=== PATIENT | male | born 1965 | race Caucasian/White ===

== ENCOUNTER 2022-03-01 15:14 | Outpatient (REF) | payer OTHER, SELFPAY ==
[2022-03-01 15:45] LABS: Appearance Urine TURBID; Color Urine YELLOW; Glucose Urine UA NEG (NEG); Nitrite Urine POS (NEG); UACC Culture Trigger YES; Urine Blood 3+ (NEG); Urine Ketones NEG (NEG); Urine Protein 1+ MG/DL (NEG-TRACE)
[2022-03-01 15:46] LABS: Leukocyte Esterase Urine 3+ (NEG)
[2022-03-01 16:07] LABS: RBC Urine TNTC /HPF (0); WBC Urine TNTC /HPF (0-4)
[2022-03-01 16:08] LABS: Amorphous Sediment Urine 2+ /LPF; Bacteria Urine 2+ /LPF; Mucus Urine TRACE /LPF; WBC Clumps Urine NOTED
== END 2022-03-01 15:15 | disposition home or self-care (01) ==
LOC: HO.LNP 15:14
PROVIDERS: Visit Provider Physician Assistant
DX: R30.0 Dysuria (principal); N39.0 Urinary tract infection, site not specified
CPT/HCPCS: 81001; 81003; 87086

== ENCOUNTER 2023-07-11 14:20 | Outpatient (AMB) | payer OTHER, SELFPAY ==
--- NOTE | 2023-07-11 14:26 | MHC.PC.OV ---
Vital Signs 07/11/23 14:33 BP 102/62 Blood Pressure Location Rt brachial Position Sitting Pulse 90 Pulse Source Pulse Oximeter Pulse Oximetry (%) 99 Oxygen Delivery Method Room Air Intake Visit Reasons: 6 month f/u Med Admin Required: No Esthetics Instructor: Present Accompanied by: Care provider Allergies Sulfa (Sulfonamide Antibiotics) [SULFA (SULFONAMIDE ANTIBIOTICS)] Allergy (Unknown, Verified 07/11/23 14:26) DIFFICULTY BREATHING Tobacco use date assessed: 01/03/23 Dental Screening Dental Screen Date: 07/11/23 Did you have a dental visit in the last 12 months?: Yes Did you have a dental problem in the last 6 months where you did not have access to dental care?: No Was dental information given to patient?: Patient has dentist HPI HPI Comments History of Present Illness Details 57-year-old male patient Dr. [facility]. Past medical history significant for diabetes mellitus, cervical fracture C3,4,5,6 and partial T3,4,5,6 fractures leaving him . Patient wheelchair bound. Patient states October 2021 [facility] admission for sepsis x4 pressure ulcer. then went to [facility] for wound care. Patient states now wound healed 1x 1cm healed skin. Patient states washes the wound with Dakin solution apply ice Silvadene cream. Patient reports his wound has slightly opened states he discuss this with his surgeon Dr. Freeman from [facility] will be coming to his house to further evaluate and treat the wound. Patient also states diazepam for spasms 5 mg q.6 hours p.r.n. Patient also has chronic Aguilar catheter the last 16 years and states he does get recurrent UTIs related to this. Patient states ciprofloxacin works best for treatment this. Patient states previously followed by Dr. Ryan, however he would like a referral to Dr. Chappell [facility] to discuss options for suprapubic tube. Referral previously entered to Dr. Walker office however patient reports he has not yet gone to an appointment. Patient reports he will be calling to reset that up. [facility] Medical History (Updated 01/03/23 @ 15:51 by DARA Agrawal) Osteoporosis Chronic incomplete quadriplegia Cervical vertebral fracture Family History Father Heart disease Social History Patient Tobacco Use Status: Never used Tobacco e-Cigarette/Vaping Use: Never Used service: No Cognitive needs: Yes Hearing needs: No Vision needs: No Questionnaire Thrive Questionnaire Date Thrive assessed: 01/03/23 TREVOR-7 AMB Questionnaire TREVOR-7 Date TREVOR - 7 assessed: 01/03/23 Source: Developed by Drs. Minor Calle, Phyllis Bush, Bill Dolan and colleagues, with an educational renee from [employer]. Physical exam (Primary Care) Vital Signs: Last Vital Signs Pulse 90 07/11/23 14:33 BP 102/62 07/11/23 14:33 Pulse Ox 99 07/11/23 14:33 Oxygen Delivery Method Room Air 07/11/23 14:33 Tobacco/Smoking Status: Tobacco use Status Tobacco use date assessed 01/03/23 07/11/23 14:27 Patient Tobacco Use Status Never used Tobacco 07/11/23 14:27 e-Cigarette/Vaping Use Never Used 07/11/23 14:27 Thrive Assessment: Date of Thrive Assessment Date Thrive assessed 01/03/23 07/11/23 14:27 Assessment and Plan Assessment & Plan (1) UTI (urinary tract infection): Code(s): N39.0 - Urinary tract infection, site not specified Plan: Will send level Enamorado is an as requested by patient for recurrent urinary tract infection as he states this medication works best.. Patient advised to schedule appointment with Dr. Chappell urology to establish care. Referral previously entered. (2) Type 2 diabetes mellitus: Code(s): E11.9 - Type 2 diabetes mellitus without complications Plan: Hemoglobin A1c and fasting glucose previously ordered. Patient advised to please get lab work completed. Patient states not currently on medications for diabetes states he is diet controlled. Patient educated to decrease the amount of carbohydrate intake such as pasta, bread, rice and potatoes are all sugar in addition to the sweet stuff. Remember that fruits are good but they also have sugar. (3) Aguilar catheter in place: Code(s): Z97.8 - Presence of other specified devices Plan: Please establish care with Urology Dr. Chappell, referral previously entered. (4) Wheelchair dependent: Code(s): Z99.3 - Dependence on wheelchair Plan Follow up in 6 months for PE with Dr. Ochoa Medications: New levofloxacin 500 mg PO DAILY 10 tabs 1RF N39.0 - Urinary tract infection, site not specified, Z97.8 - Presence of other specified devices Coding Level of Care Code Est Pt Level 4 (92763) Diagnoses UTI (urinary tract infection) N39.0 Type 2 diabetes mellitus E11.[address] Z97.8 Wheelchair dependent Z99.3
[2023-07-11 14:33] VITALS: BP 102/62; PULSE 90; O2SAT 99
== END 2023-07-11 14:59 | disposition home or self-care (01) ==
PROVIDERS: PCP Nurse Practitioner Family; Visit Provider Nurse Practitioner Family
DX: N39.0 Urinary tract infection, site not specified (principal); E11.9 Type 2 diabetes mellitus without complications; Z97.8 Presence of other specified devices; Z99.3 Dependence on wheelchair
CPT/HCPCS: 99214

== ENCOUNTER 2024-01-14 14:11 | Outpatient (AMB) | payer OTHER, SELFPAY ==
--- NOTE | 2024-01-14 14:11 | MHC.PC.OV ---
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: No Accompanied by: Self / Same As Patient Allergies Sulfa (Sulfonamide Antibiotics) [SULFA (SULFONAMIDE ANTIBIOTICS)] Allergy (Unknown, Verified 01/14/24 14:17) DIFFICULTY BREATHING Tobacco use date assessed: 01/14/24 Dental Screening Dental Screen Date: 01/14/24 Did you have a dental visit in the last 12 months?: Yes Did you have a dental problem in the last 6 months where you did not have access to dental care?: No Was dental information given to patient?: Patient has dentist HPI follow up HPI Details quadraplegia due to cervical fracture; recurrent utis; has catheters [facility] Medical History (Updated 01/15/24 @ 09:51 by Xavier Ochoa MD) Osteoporosis Chronic incomplete quadriplegia Cervical vertebral fracture Family History Father Heart disease Social History Patient Tobacco Use Status: Never used Tobacco e-Cigarette/Vaping Use: Never Used service: No Cognitive needs: Yes Hearing needs: No Vision needs: No Questionnaire PHQ-9 Over the last 2 weeks, how often have you been bothered by any of the following problems? 1. Little interest or pleasure in doing things: not at all 2. Feeling down, depressed, or hopeless: not at all 3. Trouble falling or staying asleep, or sleeping too much: not at all 4. Feeling tired or having little energy: not at all 5. Poor appetite or overeating: not at all 6. Feeling bad about yourself - or that you are a failure or have let yourself or your family down: not at all 7. Trouble concentrating on things, such as reading the newspaper or watching television: not at all 8. Moving or speaking so slowly that other people could have noticed. Or the opposite - being so fidgety or restless that you have been moving around a lot more than usual: not at all 9. Thoughts that you would be better off or of hurting yourself in some way: not at all Total score: 0 Depression Screening Interpretation: Negative Depression Screening Done: Yes 45234 - PHQ-9 Billing: Yes Source: Developed by Drs. Minor Calle, Bill Pastrana and colleagues, with an educational renee from [employer]. Thrive Questionnaire Date Thrive assessed: 01/14/24 I am a: Patient What is your living situation today?: I have a steady place to live Within the past 12 months, did the food you bought not last and you didn't have the money to get more?: Never true Within the past 12 months, did you worry whether your food would run out before you got money to buy more?: Never true Do you have trouble paying for medicines?: No Do you have trouble getting transportation to medical appointments?: No Do you have trouble paying your heating and electricity bill?: No Do you have trouble taking care of your child, family member or friend?: No Do you have trouble with day-to-day activities such as bathing, preparing meals, shopping, managing finances, etc.?: No Are you currently unemployed and looking for a job?: No Are you interested in more education?: No Please select the resources that you would like help with: None Currently or been in a relationship where the following occur: no concerns reported THRIVE Score: 0 AUDIT C Alcohol Use Questionnaire (AUDIT-C) 1. How often do you have a drink containing alcohol?: Never 3. How often do you have six or more drinks on one occasion?: Never Total Score: 0 TREVOR-7 AMB Questionnaire TREVOR-7 Date TREVOR - 7 assessed: 01/14/24 Feeling nervous, anxious, or on edge: 0 = Not at all Not being able to stop or control worryin = Not at all Worrying too much about different things: 0 = Not at all Trouble relaxin = Not at all Being so restless that it is hard to sit still: 0 = Not at all Becoming easily annoyed or irritable: 0 = Not at all Feeling afraid as if something awful might happen: 0 = Not at all Total TREVOR-7 score (0-4 normal; 5-9 mild; 10-14 moderate; 15-21 severe): 0 Source: Developed by Phyllis Adam Eleazar, Bill Dolan and colleagues, with an educational renee from [employer]. TREVOR-7 Assessment Billing TREVOR-7 Assessment Tool: TREVOR-7 Assessment 89973 Review of Systems Const Denies chills, Denies headache(s) and Denies weight loss ENT Denies headache(s) Card Denies chest pain, Denies syncope, Denies irregular heart rhythm and Denies dyspnea Resp Denies chest congestion, Denies cough and Denies dyspnea GI Denies abdominal pain, Denies change in stool character, Denies nausea and Denies vomiting Musc Denies deformity and Denies joint swelling Neuro Denies syncope and Denies headache(s) Physical exam (Primary Care) Vital Signs: Last Vital Signs Pulse 90 01/14/24 14:16 BP 112/58 L 01/14/24 14:16 Pulse Ox 97 01/14/24 14:16 Oxygen Delivery Method Room Air 01/14/24 14:16 Tobacco/Smoking Status: Tobacco use Status Tobacco use date assessed 01/14/24 01/14/24 14:18 Patient Tobacco Use Status Never used Tobacco 01/14/24 14:12 e-Cigarette/Vaping Use Never Used 01/14/24 14:12 PHQ-9: PHQ-9 Score PHQ-9: Total score 0 01/14/24 14:24 Depression Screening Interpretation: Negative Thrive Assessment: Date of Thrive Assessment Date Thrive assessed 01/14/24 01/14/24 14:24 Currently or been in a relationship where the following occur: no concerns reported Const General: cooperative, comfortable, no acute distress and alert Neck Neck: Yes no lymphadenopathy Thyroid: Thyroid normal Resp Effort & Inspection: normal respiratory effort Auscultation: clear to auscultation bilaterally Percussion: percussion normal Cardio Jugular venous distension: no JVD Palpation: normal PMI Rate: regular rate Rhythm: regular rhythm Heart sounds: S1 normal heart sound present and S2 normal heart sound present GI Inspection: Yes normal to inspection Palpation (GI): No hepatosplenomegaly present Skin General skin exam: no rashes or lesions noted Extrem General: Yes no clubbing, cyanosis or edema Assessment and Plan Assessment & Plan (1) Wheelchair dependent: Code(s): Z99.3 - Dependence on wheelchair Plan: same rx (2) Chronic flaccid quadriplegia: Code(s): G82.50 - Quadriplegia, unspecified Plan: stable; do labs Orders: Orders Lipid Panel 01/14/24 Z13.220 - Encounter for screening for lipoid disorders Comprehensive Dickens. Panel Fast 01/14/24 Z13.9 - Encounter for screening, unspecified Thyroid Stimulating Hormone 01/14/24 Z13.29 - Encounter for screening for other suspected endocrine disorder Complete Blood Count Auto Diff 01/14/24 Z13.0 - Encounter for screening for diseases of the blood and blood-forming organs and certain disorders involving the immune mechanism Medications: Refilled [Aguilar catheter 3 way indwelling coude tip 22 FR] As directed 1 ea 0RF Coding Level of Care Code Est Pt Level 3 (41889) Diagnoses Wheelchair dependent Z99.3 Chronic flaccid quadriplegia G82.50 Additional Codes TREVOR-7 Assessment Billing - TREVOR-7 Assessment Tool: TREVOR-7 Assessment 51000 ([id number])
[2024-01-14 14:16] VITALS: BP 112/58; PULSE 90; O2SAT 97
--- OUTSIDE RECORDS SUMMARY | 2024-01-14 14:17 | XMS_ITS | Continuity of Care Document ---
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 Name Role Phone Xavier Ochoa MD Primary Care Physician [place] [facility]s): 06/08[place] - 07/14/21 Wound Care [address] [place] [id number] Attending Physician: Amrik Delarosa MD Admitting Physician: Amrik Delarosa MD Referring Physician: Xavier Ochoa MD Allergies, Adverse Reactions, Alerts Substance Reaction Severity Status sulfa drugs hives Active Medications Cipro 500 mg oral tablet 1 tablet = 500 mg, By Mouth, Every 12 hours, for 10 days, # 20 tablet, 0 Refills, Acute 07/16/21 16:22:00 EST, 07/06/21 16:22:00 EST, [facility] #[id number], Partial fill upon patient request if the prescription is for a schedule II opioi... Start Date: 07/06/21 Stop Date: 07/16/21 Status: Ordered diazepam 5 mg oral tablet 1 tablet = 5 mg, By Mouth, Daily at bedtime, PRN as needed for anxiety, 0 Refills, Maintenance, 01/19/12 11:19:13, Tablet Start Date: 01/19/12 Status: Ordered diphenhydramine 25 mg oral tablet By Mouth, Daily at bedtime, PRN Itch Insomnia, 0 Refills, Tablet Start Date: 01/25/12 Status: Ordered Flagyl 500 mg oral tablet 1 tablet = 500 mg, By Mouth, 3 times a day, for 10 days, # 30 tablet, 0 Refills, Acute 07/16/21 16:22:00 EST, 07/06/21 16:22:00 EST, Tablet, [facility] #[id number], Partial fill upon patient request if the prescription is for a schedule II opioid... Start Date: 07/06/21 Stop Date: 07/16/21 Status: Ordered glyburide 5 mg oral tablet By Mouth, Daily, 0 Refills, Tablet Start Date: 01/25/12 Status: Ordered hydrocortisone topical valerate 0.2% ointment apply to affected area once daily Start Date: 08/11/16 Status: Ordered nystatin-triamcinolone topical 637699 u/gm-0.1% cream 1 application, Topically, 2 times a day, for 14 days, apply to affected skin, # 30 Gm, 0 Refills, Acute 07/20/21 16:21:00 EST, 07/06/21 16:21:00 EST, [facility] #[id number], Partial fill upon patient request if the prescription is for a schedule... Start Date: 07/06/21 Stop Date: 07/20/21 Status: Ordered Silvadene 1% cream 1 application, Topically, Daily, # 400 Gm, 0 Refills, Acute 08/10/21 16:23:00 EST, 07/06/21 16:20:00 EST, Cream, [facility] #[id number], Partial fill upon patient request if the prescription is for a schedule II opioid drug., 1 application Topica... Start Date: 07/06/21 Stop Date: 08/10/21 Status: Ordered Silvadene 1% cream 1 application, Topically, Daily, known tolerance of silvadene despite allergy sulfa, # 400 Gm, 5 Refills, Maintenance, 01/10/18 11:40:29 EDT, Cream, 1 application Topically Daily,Instr:known tolerance of silvadene despite allergy sulfa Start Date: 01/10/18 Status: Ordered SSD 1% cream 1 application, Topically, Daily, # 25 Gm, 0 Refills, Maintenance, 08/11/16 17:18:26, Cream Start Date: 08/11/16 Status: Ordered Problem List Condition Effective Dates Status Health Status Inform ant C4 spinal cord injury(Confirmed) Active Diabetes Mellitus(Confirmed) Active
--- OUTSIDE RECORDS SUMMARY | 2024-01-14 14:20 | XMS_ITS | Continuity of Care Document ---
Author Organization Wound Care Address [address] [place] [id number]- Care Team Providers Care Instructor Business Education Name Role Phone Xavier Ochoa MD Primary Care Physician En[place] [facility] [place] Date(s): 06/09/21 - 07/13/[address]ound [address] [place] [id number] Attending Physician: Amrik Delarosa MD Admitting Physician: Amrik Delarosa MD Referring Physician: Xavier Ochoa MD Allergies, Adverse Reactions, Alerts Substance Reaction Severity Status sulfa drugs hives Active Medications Cipro 500 mg oral tablet 1 tablet = 500 mg, By Mouth, Every 12 hours, for 10 days, # 20 tablet, 0 Refills, Acute 07/16/21 16:22:00 EST, 07/06/21 16:22:00 EST, [facility] #[id number], Partial fill upon patient request if the [...] 07/16/21 16:22:00 EST, 07/06/21 16:22:00 EST, Tablet, [email or web address] #[id number], Partial fill upon patient request if the prescription is for a schedule II opioid... Start Date: 07/06/21 Stop Date: 07/16/21 Status: Ordered glyburide 5 mg oral tablet By Mouth, Daily, 0 Refills, Tablet Start Date: 01/25/12 Status: Ordered hydrocortisone topical valerate 0.2% ointment apply to affected area once daily Start Date: 08/11/16 Status: Ordered nystatin-triamcinolone topical 262079 u/gm-0.1% cream 1 application, Topically, 2 times a day, for 14 days, apply to affected skin, # 30 Gm, 0 Refills, Acute 07/20/21 16:21:00 EST, 07/06/21 16:21:00 EST, [email or web address] #[id number], Partial fill upon patient request if the prescription is for a schedule... Start Date: 07/06/21 Stop Date: 07/20/21 Status: Ordered Silvadene 1% cream 1 application, Topically, Daily, # 400 Gm, 0 Refills, Acute 08/10/21 16:23:00 EST, 07/06/21 16:20:00 EST, Cream, [email or web address] #[id number], Partial fill upon patient request if the [...]
== END 2024-01-14 14:41 | disposition home or self-care (01) ==
LOC: HO.HMGH 14:11
PROVIDERS: PCP Internal Medicine; Visit Provider Internal Medicine
DX: G82.50 Quadriplegia, unspecified (principal); Z99.3 Dependence on wheelchair
CPT/HCPCS: 99213

== ENCOUNTER 2024-04-28 14:19 | Outpatient (AMB) | payer OTHER, SELFPAY ==
--- NOTE | 2024-04-28 14:23 | A.OFFPC_ITS ---
Vital Signs 04/28/24 14:29 BP 116/62 Blood Pressure Location Lt brachial Position Sitting Pulse 85 Pulse Source Pulse Oximeter Pulse Oximetry (%) 95 Oxygen Delivery Method Room Air Intake Visit Reasons: 3 Month F/U Intake Note: Pt is requesting eye ointment. 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 Required: No Accompanied by: Self / Same As Patient Allergies Sulfa (Sulfonamide Antibiotics) [SULFA (SULFONAMIDE ANTIBIOTICS)] Allergy (Unknown, Verified 04/28/24 14:28) DIFFICULTY BREATHING Medication List - Last Reconciled 04/29/24 by Xavier Ochoa MD ascorbate calcium (vitamin C) 500 mg PO DAILY [Bard 30cc ceja cath kit As directed] catheterization tray (Ceja Catheter Tray) As directed ciprofloxacin HCl (Cipro) 250 mg PO BID diazepam 5 mg PO Q6H PRN erythromycin 1 appl ophthalmic (eye) DAILY [Ceja catheter 3 way indwelling coude tip 22 FR As directed] silver sulfadiazine 1% 1 appl topical BID 30 days Tobacco use date assessed: 01/14/24 Dental Screening Dental Screen Date: 01/14/24 HPI 3 Month F/U HPI Details quadraplegia due to cervical fracture; [facility] Medical History (Updated 01/15/24 @ 09:51 by Xavier Ochoa MD) Osteoporosis Chronic incomplete quadriplegia Cervical vertebral fracture Family History Father Heart disease Social History Housing: House Patient Tobacco Use Status: Never used Tobacco Tobacco use type: Cigarette e-Cigarette/Vaping Use: Never Used service: No Cognitive needs: Yes Hearing needs: No Vision needs: No Questionnaire PHQ-9 Over the last 2 weeks, how often have you been bothered by any of the following problems? 1. Little interest or pleasure in doing things: not at all 2. Feeling down, depressed, or hopeless: not at all 3. Trouble falling or staying asleep, or sleeping too much: not at all 4. Feeling tired or having little energy: not at all 5. Poor appetite or overeating: not at all 6. Feeling bad about yourself - or that you are a failure or have let yourself or your family down: not at all 7. Trouble concentrating on things, such as reading the newspaper or watching television: not at all 8. Moving or speaking so slowly that other people could have noticed. Or the opposite - being so fidgety or restless that you have been moving around a lot more than usual: not at all 9. Thoughts that you would be better off or of hurting yourself in some way: not at all Total score: 0 Depression Screening Interpretation: Negative Depression Screening Done: Yes 75595 - PHQ-9 Billing: Yes Source: Developed by Drs. Minor Calle, Phyllis Bush, Bill Dolan and colleagues, with an educational renee from [employer]. Thrive Questionnaire Date Thrive assessed: 01/14/24 Are you currently unemployed and looking for a job?: No AUDIT C Alcohol Use Questionnaire (AUDIT-C) 1. How often do you have a drink containing alcohol?: Never 3. How often do you have six or more drinks on one occasion?: Never Total Score: 0 TREVOR-7 AMB Questionnaire TREVOR-7 Date TREVOR - 7 assessed: 01/14/24 Source: Developed by Drs. Minor Calle, Phyllis Bush, Bill Dolan and colleagues, with an educational renee from [employer]. Review of Systems Const Denies chills, Denies headache(s) and Denies weight loss ENT Denies headache(s) Card Denies chest pain, Denies syncope, Denies irregular heart rhythm and Denies dyspnea Resp Denies chest congestion, Denies cough and Denies dyspnea GI Denies abdominal pain, Denies change in stool character, Denies nausea and Denies vomiting Musc Denies deformity and Denies joint swelling Neuro Denies syncope and Denies headache(s) Physical exam (Primary Care) Vital Signs: Last Vital Signs Pulse 85 04/28/24 14:29 BP 116/62 04/28/24 14:29 Pulse Ox 95 04/28/24 14:29 Oxygen Delivery Method Room Air 04/28/24 14:29 Tobacco/Smoking Status: Tobacco use Status Tobacco use date assessed 01/14/24 04/28/24 14:23 Patient Tobacco Use Status Never used Tobacco 04/28/24 14:23 Tobacco use type Cigarette 04/28/24 14:32 e-Cigarette/Vaping Use Never Used 09/24/24 14:23 PHQ-9: PHQ-9 Score PHQ-9: Total score 0 04/28/24 14:32 Depression Screening Interpretation: Negative Thrive Assessment: Date of Thrive Assessment Date Thrive assessed 01/14/24 04/28/24 14:23 Const General: cooperative, comfortable, no acute distress and alert Neck Neck: Yes no lymphadenopathy Thyroid: Thyroid normal Resp Effort & Inspection: normal respiratory effort Auscultation: clear to auscultation bilaterally Percussion: percussion normal Cardio Jugular venous distension: no JVD Palpation: normal PMI Rate: regular rate Rhythm: regular rhythm Heart sounds: S1 normal heart sound present and S2 normal heart sound present GI Inspection: Yes normal to inspection Palpation (GI): No hepatosplenomegaly present Skin General skin exam: no rashes or lesions noted Extrem General: Yes no clubbing, cyanosis or edema Assessment and Plan Assessment & Plan (1) Chronic flaccid quadriplegia: Code(s): G82.50 - Quadriplegia, unspecified Plan: stable; same rx Medications: New erythromycin 1 appl ophthalmic (eye) DAILY 3.5 grams 3RF Refilled diazepam 5 mg PO Q6H PRN 90 tabs 0RF spasms ciprofloxacin HCl (Cipro) 250 mg PO BID 14 tabs 3RF Coding Level of Care Code Est Pt Level 3 (31963) Diagnoses Chronic flaccid quadriplegia G82.50
[2024-04-28 14:29] VITALS: BP 116/62; PULSE 85; O2SAT 95
== END 2024-04-28 14:48 | disposition home or self-care (01) ==
PROVIDERS: PCP Internal Medicine; Visit Provider Internal Medicine
DX: G82.50 Quadriplegia, unspecified (principal)

== ENCOUNTER → 2024-04-28 14:19 | Outpatient (BNVA) | payer OTHER, SELFPAY | PROVIDERS: PCP Internal Medicine; Visit Provider Internal Medicine | DX: G82.50 Quadriplegia, unspecified (principal); S12.9XXS Fracture of neck, unspecified, sequela | CPT/HCPCS: 96127; 99212 ==

== ENCOUNTER 2024-09-29 11:52 | Outpatient (AMB) | payer OTHER, SELFPAY ==
--- NOTE | 2024-09-29 11:53 | A.OFFPC_ITS ---
Vital Signs 09/29/24 11:54 BMI Reason not done Patient refused/unable BP 100/62 Blood Pressure Location Lt brachial Position Sitting Pulse 73 Pulse Source Pulse Oximeter Pulse Oximetry (%) 97 Oxygen Delivery Method Room Air Intake Visit Reasons: 3 month f/u Merchandise Complaint Adjuster Required: No Accompanied by: Self / Same As Patient Allergies Sulfa (Sulfonamide Antibiotics) [SULFA (SULFONAMIDE ANTIBIOTICS)] Allergy (Unknown, Verified 09/29/24 11:54) DIFFICULTY BREATHING Medication List - Last Reconciled 09/30/24 by Xavier Ochoa MD ascorbate calcium (vitamin C) 500 mg PO DAILY [Bard 30cc ceja cath kit As directed] catheterization tray (Ceja Catheter Tray) As directed ciprofloxacin HCl (Cipro) 250 mg PO BID 10 days diazepam 5 mg PO Q6H PRN erythromycin 1 appl ophthalmic (eye) DAILY [Ceja catheter 3 way indwelling coude tip 22 FR As directed] silver sulfadiazine 1% 1 appl topical BID 30 days Tobacco use date assessed: 09/29/24 Dental Screening Dental Screen Date: 09/29/24 Did you have a dental visit in the last 12 months?: Yes Did you have a dental problem in the last 6 months where you did not have access to dental care?: No Was dental information given to patient?: Patient has dentist HPI 3 month f/u HPI Details quadraplegic following a cervical fracture; DM and frquent UTIs; self manages himself well PFSH Medical History (Updated 01/15/24 @ 09:51 by Xavier Ochoa MD) Osteoporosis Chronic incomplete quadriplegia Cervical vertebral fracture Family History Father Heart disease Social History Housing: House Patient Tobacco Use Status: Never used Tobacco Tobacco use type: Cigarette e-Cigarette/Vaping Use: Never Used service: No Cognitive needs: Yes Hearing needs: No Vision needs: No Questionnaire PHQ-9 Over the last 2 weeks, how often have you been bothered by any of the following problems? 1. Little interest or pleasure in doing things: not at all 2. Feeling down, depressed, or hopeless: not at all 3. Trouble falling or staying asleep, or sleeping too much: not at all 4. Feeling tired or having little energy: not at all 5. Poor appetite or overeating: not at all 6. Feeling bad about yourself - or that you are a failure or have let yourself or your family down: not at all 7. Trouble concentrating on things, such as reading the newspaper or watching television: not at all 8. Moving or speaking so slowly that other people could have noticed. Or the opposite - being so fidgety or restless that you have been moving around a lot more than usual: not at all 9. Thoughts that you would be better off or of hurting yourself in some way: not at all Total score: 0 Depression Screening Interpretation: Negative Depression Screening Done: Yes 77055 - PHQ-9 Billing: Yes Source: Developed by Drs. Minor Calle, Phyllis Bush, Bill Dolan and colleagues, with an educational renee from [employer]. Thrive Questionnaire Date Thrive assessed: 09/29/24 Are you currently unemployed and looking for a job?: No AUDIT C Alcohol Use Questionnaire (AUDIT-C) 1. How often do you have a drink containing alcohol?: Never 3. How often do you have six or more drinks on one occasion?: Never Total Score: 0 TREVOR-7 AMB Questionnaire TREVOR-7 Date TREVOR - 7 assessed: 09/29/24 Feeling nervous, anxious, or on edge: 0 = Not at all Not being able to stop or control worryin = Not at all Worrying too much about different things: 0 = Not at all Trouble relaxin = Not at all Being so restless that it is hard to sit still: 0 = Not at all Becoming easily annoyed or irritable: 0 = Not at all Feeling afraid as if something awful might happen: 0 = Not at all Total TREVOR-7 score (0-4 normal; 5-9 mild; 10-14 moderate; 15-21 severe): 0 Source: Developed by Drs. Minor Calle, Phyllis Bush, Bill Dolan and colleagues, with an educational renee from [employer]. Review of Systems Const Denies chills, Denies headache(s) and Denies weight loss ENT Denies headache(s) Card Denies chest pain, Denies syncope, Denies irregular heart rhythm and Denies dyspnea Resp Denies chest congestion, Denies cough and Denies dyspnea GI Denies abdominal pain, Denies change in stool character, Denies nausea and Denies vomiting Musc Denies deformity and Denies joint swelling Neuro Denies syncope and Denies headache(s) Physical exam (Primary Care) Vital Signs: Last Vital Signs Pulse 73 09/29/24 11:54 BP 100/62 09/29/24 11:54 Pulse Ox 97 09/29/24 11:54 Oxygen Delivery Method Room Air 09/29/24 11:54 Tobacco/Smoking Status: Tobacco use Status Tobacco use date assessed 09/29/24 09/29/24 11:59 Patient Tobacco Use Status Never used Tobacco 09/29/24 11:59 Tobacco use type Cigarette 09/29/24 11:59 e-Cigarette/Vaping Use Never Used 09/29/24 11:59 PHQ-9: PHQ-9 Score PHQ-9: Total score 0 09/29/24 11:59 Depression Screening Interpretation: Negative Thrive Assessment: Date of Thrive Assessment Date Thrive assessed 09/29/24 09/29/24 11:59 Const General: cooperative, comfortable, no acute distress and alert Neck Neck: Yes no lymphadenopathy Thyroid: Thyroid normal Resp Effort & Inspection: normal respiratory effort Auscultation: clear to auscultation bilaterally Percussion: percussion normal Cardio Jugular venous distension: no JVD Palpation: normal PMI Rate: regular rate Rhythm: regular rhythm Heart sounds: S1 normal heart sound present and S2 normal heart sound present GI Inspection: Yes normal to inspection Palpation (GI): No hepatosplenomegaly present Skin General skin exam: no rashes or lesions noted Extrem General: Yes no clubbing, cyanosis or edema Coding Level of Care Code Est Pt Level 3 (51848) Diagnoses 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
[2024-09-29 11:54] VITALS: BP 100/62; PULSE 73; O2SAT 97
--- OUTSIDE RECORDS SUMMARY | 2024-09-29 14:31 | XMS_ITS | Clinical Summary ---
Author Organization [facility] Address [address] [place] [address] Care Team Providers Care Rollway Worker Name Role Phone Xavier Ochoa MD Primary Care Provider [phone] Allergies Active Allergy Reactions Criticality Noted Date Comments Sulfa Antibiotics Unknown/Patient and Family Unable to Define Medium 12/20/2021 Medications Medication Sig Dispensed Refills Start Date End Date Status Amino Acids (AMINO ACID PROTEIN PO) Take 27.5 g by mouth 2 (two) times a day. Active melatonin 3 MG Tab tablet Take 9 mg by mouth nightly. Active senna-docusate (SENNA-S) 8.6-50 MG Take 1 tablet by mouth 2 (two) times a day. Active magnesium oxide 400 (240 Mg) MG Tab tablet Take 400 mg by mouth 2 (two) times a day. Take 2 hours apart from other medications; take with food Active Multiple Vitamins-Minerals (multivitamin with minerals) tablet Take 1 tablet by mouth daily. Active ascorbic acid (VITAMIN C) 500 MG tablet Take 500 mg by mouth daily. Active enoxaparin (LOVENOX) 40 MG/0.4ML injection Inject 40 mg under the skin daily. Active triamcinolone (KENALOG) 0.1 % cream Apply 1 each topically 2 (two) times a day. Active sodium hypochlorite (DAKINS 1/4 STRENGTH) 0.125 % Solution external solution Apply topically 3 (three) times a day. On every shift to buttocks/ischial wound Activ e acetaminophen (TYLENOL) 325 MG tablet Take 650 mg by mouth every 4 (four) hours as needed for mild pain. Active aluminum-magnesium hydroxide-simethic one (MYLANTA) suspension Take 30 mL by mouth 4 times daily (every 6 hours) as needed for indigestion or heartburn. Active magnesium hydroxide (MILK OF MAGNESIA) 400 mg/5 mL suspension Take 30 mL by mouth daily as needed for constipation. Active polyethylene glycol (miraLAx) 17 g packet Take 17 g by mouth 2 times daily (every 12 hours) as needed for constipation. Active docusate sodium (COLACE) 100 MG capsule Take 100 mg by mouth daily as needed for constipation. Active Dextrose, Diabetic Use, (GLUCOSE PO) Take 31 g by mouth daily as needed (low blood sugar). Active simethicone (MYLICON) 80 MG chewable tablet Chew 160 mg 4 times daily (every 6 hours) as needed for flatulence or gastrointestinal distress. Active diazepam (VALIUM) 5 MG tablet Take 5 mg by mouth daily as needed for anxiety. Active diphenhydrAMINE (BENADRYL) 25 mg capsule Take 25 mg by mouth 4 times daily (every 6 hours) as needed for itching or allergies. Active diphenhydrAMINE (BENADRYL) 25 mg capsule Take 50 mg by mouth nightly as needed for itching or allergies. Active glucagon (GLUCAGEN) 1 mg injection Inject 1 mg into the shoulder, thigh, or buttocks once as needed for low blood sugar. Active hydrocortisone 1 % cream Apply 1 each topically 2 (two) times a day as needed for rash. Active Active Problems Problem Noted Date Diagnosed Date Quadriplegia 12/20/2021 Pressure injury of buttock, stage 4 12/20/2021 Urinary retention 12/20/2021 Decubitus ulcer 12/20/2021 Chronic anemia 12/20/2021 Diabetes mellitus 12/20/2021 Family History Medical History Relation Name Comments Heart disease Father Relation Name Status Comments Father Social History Tobacco Use Types Packs/Day Years Used Date Smoking Tobacco: Former Smokeless Tobacco: Never Alcohol Use Standard Drinks/Week Comments Not Currently 0 (1 standard drink = 0.6 oz pur e alcohol) Sex and Gender Information Value Date Recorded Sex Assigned at Not on file Gender Identity Not on file Sexual Orientation Not on file Last Filed Vital Signs Vital Sign Reading Time Taken Comments Blood Pressure 124/101 12/20/2021 8:00 PM EDT Pulse 93 12/20/2021 8:00 PM EDT Temperature 36.1 ??C (96.9 ??F) 12/20/2021 6:10 PM ED T Respiratory Rate 14 12/20/2021 8:00 PM EDT Oxygen Saturation 97% 12/20/2021 8:00 PM EDT Inhaled Oxygen Concentration - - Weight - - Height - - Body Mass Index - - Plan of Treatment Health Maintenance Due Date Last Done Comments Hepatitis C Virus Screening 1963 Pneumococcal Vaccine: Pediat jose rafael (0-5 Years) and At-Risk Patients (6 to 49 Years) (1 of 2 - PCV) 1969 Foot Exam 1973 Lipid Panel 1973 Ophthalmology Exam 1973 HIV Screening 1976 Microalbumin/Creatinine Rati o Urine 1981 DTaP/Tdap/Td Vaccines (1 - Tdap) 1982 Pneumococcal Vaccines 50+ (1 of 2 - PCV) 1982 Colonoscopy 2008 Zoster (Shingles) Vaccine (1 of 2) 2013 Diabetic Self-Management Tra ining (DSMT) 12/20/2021 Hemoglobin A1C 01/07/2022 10/07/2021 Creatinine with GFR 12/20/2022 12/20/2021 RSV Vaccine 60 years and old er and Patients (1 - Risk 60-74 years 1-dose series) 2023 Influenza Vaccine 03/05/2024 COVID-19 Vaccine (1 - 2023-2 5 season) 2024 Medical Nutrition Therapy (MNT) 08/05/2024 Hepatitis B Vaccines Aged Out No long er eligible based on patient's age to complete this topic Procedures Procedure Name Priority Date/Time Associated Diagnosis Comments COMPREHENSIVE METABOLIC PANEL STAT 12/20/2021 2:02 PM EDT from Last 3 Months or Most Recently Relevant to Health Maintenance Results * (ABNORMAL) Comprehensive Metabolic Panel (12/20/2021 2:02 PM EDT) Glucose 163(H) 65 - 99 mg/dL 12/20/2021 3:09 PM EDT [facility] Blood Urea Nitrogen (BUN) 34(H) 8 - 21 mg/dL 12/20/2021 3:09 PM EDT [facility] Creatinine 0.3(L) 0.5 - 1.3 mg/dL 12/20/2021 3:09 PM [facility] eGFR >60 >59 12/20/2021 3:09 PM [facility] Comment:MDRD in mL/min/1.73 sq meters. Sodium 136 136 - 145 mmol/L 12/20/2021 3:09 PM [facility] Potassium 3.7 3.4 - 5.3 mmol/L 12/20/2021 3:09 PM [facility] Chloride 98 98 - 107 mmol/L 12/20/2021 3:09 PM [facility] CO2 26 22 - 33 mmol/L 12/20/2021 3:09 PM [facility] Calcium 10.4 8.7 - 10.5 mg/dL 12/20/2021 3:09 PM [facility] Alkaline Phosphatase 98 45 - 128 U/L 12/20/2021 3:09 PM [facility] Aspartate Aminotrans (AST) 14 10 - 55 U/L 12/20/2021 3:09 PM [facility] Alanine Aminotrans (ALT) 12 10 - 55 U/L 12/20/2021 3:09 PM [facility] Bilirubin, Total <0.2(L) 0.2 - 1.0 mg/dL 12/20/2021 3:09 PM [facility] Protein, Total 7.7 6.3 - 8.3 g/dL 12/20/2021 3:09 PM [facility] Albumin 3.6 3.5 - 5.0 g/dL 12/20/2021 3:09 PM [facility] BUN/Creatinine Ratio 113(H) 10.0 - 25.0 Ratio 12/20/2021 3:09 PM [facility] Globulin 4.1(H) 1.5 - 3.9 g/dL 12/20/2021 3:09 PM [facility] Albumin/Globulin Ratio 0.9(L) 1.0 - 3.0 Ratio 12/20/2021 3:09 PM [facility] Anion Gap 12 7 - 17 12/20/2021 3:09 PM [facility] Blood specimen (specimen) (Plasma/Serum) 12/20/2021 2:02 PM EDT 12/20/2021 2:45 PM EDT Ida Mcgill MD [facility] [address] [place] [address] from Last 3 Months or Most Recently Relevant to Health Maintenance Advance Directives * Full Code (Latest Code Status on File) Date Activated Date Inactivated Comments 12/20/2021 2:27 PM Care Teams Rollway Worker Relationship Specialty Start Date End Date Xavier Ochoa MD [address] [place] [address] PCP - General 12/20/21
--- OUTSIDE RECORDS SUMMARY | 2024-09-29 14:31 | XMS_ITS | Clinical Summary ---
Author Organization [facility] Address [address] [place] [address] Care Team Providers Care Data Security Analyst Name Role Phone Unavailable Primary Care Provider Unavailabl e Medications No known medications Active Problems Problem Noted Date Diagnosed Date Pressure injury of left ischium, unstageable Social History Tobacco Use Types Packs/Day Years Used Date Smoking Tobacco: Never Assessed Sex and Gender Information Value Date Recorded Sex Assigned at Not on file Legal Sex Male 2:58 PM EDT Gender Identity Not on file Sexual Orientation Not on file Last Filed Vital Signs Vital Sign Reading Time Taken Comments Blood Pressure 80/55 10/24/2023 3:16 PM EDT Pulse 76 10/24/2023 3:16 PM EDT Temperature 36.9 ??C (98.5 ??F) 10/24/2023 3:16 PM ED T Respiratory Rate 18 10/24/2023 3:16 PM EDT Oxygen Saturation 96% 10/24/2023 3:16 PM EDT Inhaled Oxygen Concentration - - Weight - - Height - - Body Mass Index - - Plan of Treatment Health Maintenance Due Date Last Done Comments Pneumococcal Vaccine (2 - 49 years) (1 of 2 - PCV) 1969 Pneumococcal Vaccine (50+ ye ars) (1 of 2 - PCV) 1969 HIV screening 1976 Hepatitis C screening 1981 Tetanus adult (Td q 10,TDAP once) 1983 Lipid disorder screening 2003 Colon cancer screening, Colonoscopy 2008 Diabetes screening 2008 Shingles vaccine (Shingrix) (1 of 2 - Shingrix (RZV) 2 Dose Standard Series) 2013 RSV Discussion (1 - Risk 60- 74 years 1-dose series) 2023 Influenza vaccine 03/05/2024 Covid-19 vaccine series (2023-25 season) 2024 Meningococcal Vaccine Aged Out No lizbeth shalom eligible based on patient's age to complete this topic Insurance WORKERS COMP GENERIC WORKERS COMP GENERIC
--- OUTSIDE RECORDS SUMMARY | 2024-09-29 14:31 | XMS_ITS | Referral Summary ---
Author Organization [facility] Address [address] [place] [address] Care Team Providers Care Glass Bender Name Role Phone Xavier Ochoa Primary Care Provider [phone] Allergies Active Allergy Reactions Criticality Noted Date Comments Sulfa (Sulfonamide Antibiotics) Hives 08/06 Medications diazePAM (VALIUM) 5 mg tablet SMARTSI Tablet(s) By Mouth Every 6 Hours PRN Active levoFLOXacin (LEVAQUIN) 500 mg tablet SMARTSI Tablet(s) By Mouth Daily 07/12/2023 Active Active Problems Problem Noted Date Diagnosed Date Decubitus ulcer of ischial area, left, stage IV 09/03/2023 Social History Tobacco Use Types Packs/Day Years Used Date Smoking Tobacco: Never Assessed Sex and Gender Information Value Date Recorded Sex Assigned at Not on file Legal Sex Male 9:00 AM EDT Gender Identity Not on file Sexual Orientation Not on file Plan of Treatment Not on file Insurance [employer] COMPENSATION Care Teams Glass Bender Relationship Specialty Start Date End Date Xavier Ochoa [address] [place] [address] [place] [address] PCP - General Internal Medicine 08/09/23
--- OUTSIDE RECORDS SUMMARY | 2024-09-29 14:31 | XMS_ITS | Clinical Summary ---
Author Organization [facility] Address [address] [place] [address] Care Team Providers Care Medical Device Sales Name Role Phone Xavier Ochoa Primary Care Provider [phone] Allergies Active Allergy Reactions Criticality Noted Date [...] Orientation Not on file Plan of Treatment Health Maintenance Due Date Last Done Comments Cologuard 1963 Colon Cancer Screening 1963 Colonoscopy 1963 FOBT / Fit Test 1963 HIV Screening 1963 Hepatitis C Screening 1963 Sigmoidoscopy 1963 DTaP,Tdap,and Td Vaccines (1 - Tdap) 1985 Pneumococcal Vaccine: 50+ Ye ars (1 of 1 - PCV) 2013 Zoster Vaccines (1 of 2) 2013 COVID-19 Vaccine (2 - 2023-2 5 season) 2024 11/11/2020 Influenza Vaccine (#1) 2024 06/19/2017 Alcohol/Substance Use Screening 08/05/2024 Depression Screening and Follow-Up 08/05/2024 Social Drivers of Health Danielle ual Screening 08/05/2024 RSV Vaccine (60+ years old a nd patients) (1 - 1-dose 75+ series) 2038 Hepatitis B Vaccines Aged Out No long er eligible based on patient's age to complete this topic Insurance [employer] COMP[employer] Care Teams Medical Device Sales Relationship Specialty Start Date End Date Xavier Ochoa [address] [place] [address] [place] [address] PCP - General Internal Medicine 08/09/23
--- OUTSIDE RECORDS SUMMARY | 2024-09-29 14:31 | XMS_ITS | Clinical Summary ---
Author Organization [facility] Address [address] [place] [id number] Care Team Providers Care Vibration Technician Name Role Phone Unavailable Primary Care Provider Unavailabl e Social History Tobacco Use Types Packs/Day Years Used Date Smoking Tobacco: Never Assessed Sex and Gender Information Value Date Recorded Sex Assigned at Not on file Legal Sex Male 8:59 AM EDT Gender Identity Not on file Sexual Orientation Not on file Plan of Treatment Health Maintenance Due Date Last Done Comments Pneumococcal Vaccine: Pediat rics (0 to 5 Years) and At-Risk Patients (6 to 64 Years) (1 of 2 - PCV) 1969 Colorectal Cancer Screening: Annual FOBT 2012 Colorectal Cancer Screening: Colonoscopy 2012 Colorectal Cancer Screening: Sigmoidoscopy 2012 Diabetes: Hemoglobin A1C 10/20/2021 Diabetes: Ophthalmology Exam 10/20/2021 Diabetes: Pedal Pulse Checked 10/20/2021 Diabetes: Sensory Foot Exam 10/20/2021 Diabetes: Visual Foot Exam 10/20/2021 Influenza Vaccine (#1) 2024 Hepatitis B Vaccine Aged Out No longe r eligible based on patient's age to complete this topic Insurance GENERIC WORKER'S COMP
== END 2024-09-29 12:22 | disposition home or self-care (01) ==
PROVIDERS: PCP Internal Medicine; Visit Provider Internal Medicine
DX: G82.50 Quadriplegia, unspecified (principal); E11.9 Type 2 diabetes mellitus without complications

== ENCOUNTER → 2024-09-29 11:52 | Outpatient (BNVA) | payer OTHER, SELFPAY | PROVIDERS: PCP Internal Medicine; Visit Provider Internal Medicine | DX: G82.50 Quadriplegia, unspecified (principal); E11.9 Type 2 diabetes mellitus without complications; Z87.440 Personal history of urinary (tract) infections | CPT/HCPCS: 96127; 99212 ==

== ENCOUNTER 2025-03-30 12:30 | Outpatient (AMB) | payer OTHER, SELFPAY ==
--- NOTE | 2025-03-30 12:30 | MHC.PC.OV ---
Vital Signs 03/30/25 12:32 BMI Reason not done Patient refused/unable BP 124/66 Blood Pressure Location Rt brachial Position Sitting Pulse 65 Pulse Source Pulse Oximeter Pulse Oximetry (%) 97 Oxygen Delivery Method Room Air Intake Visit Reasons: transfer from [facility] Allergies Sulfa (Sulfonamide Antibiotics) (SULFA (SULFONAMIDE ANTIBIOTICS)) Allergy (Unknown, Verified 03/30/25 12:38) DIFFICULTY BREATHING Medication List - Last Reconciled 03/30/25 by Fariba Canales MD ascorbate calcium (vitamin C) 500 mg PO DAILY [Bard 30cc ceja cath kit As directed] catheterization tray (Ceja Catheter Tray) As directed ciprofloxacin HCl (Cipro) 250 mg PO BID 10 days diazepam 5 mg PO Q6H PRN [Ceja catheter 3 way indwelling coude tip 22 FR As directed] silver sulfadiazine 1% 1 appl topical BID 30 days Tobacco use date assessed: 03/30/25 Dental Screening Dental Screen Date: 03/30/25 Did you have a dental visit in the last 12 months?: Yes Did you have a dental problem in the last 6 months where you did not have access to dental care?: No Was dental information given to patient?: Patient has dentist [facility] Medical History (Updated 03/30/25 @ 13:00 by Fariba Canales MD) Osteoporosis Chronic incomplete quadriplegia Cervical vertebral fracture Family History Father Heart disease Social History Housing: House Patient Tobacco Use Status: Never used Tobacco Tobacco use type: Cigarette e-Cigarette/Vaping Use: Never Used service: No Cognitive needs: Yes Hearing needs: No Vision needs: No Questionnaire PHQ-9 Over the last 2 weeks, how often have you been bothered by any of the following problems? 1. Little interest or pleasure in doing things: not at all 2. Feeling down, depressed, or hopeless: not at all 3. Trouble falling or staying asleep, or sleeping too much: not at all 4. Feeling tired or having little energy: not at all 5. Poor appetite or overeating: not at all 6. Feeling bad about yourself - or that you are a failure or have let yourself or your family down: not at all 7. Trouble concentrating on things, such as reading the newspaper or watching television: not at all 8. Moving or speaking so slowly that other people could have noticed. Or the opposite - being so fidgety or restless that you have been moving around a lot more than usual: not at all 9. Thoughts that you would be better off or of hurting yourself in some way: not at all Total score: 0 Depression Screening Interpretation: Negative Depression Screening Done: Yes Source: Developed by Drs. Minor Calle, Phyllis Bush, Bill Dolan and colleagues, with an educational renee from [employer]. Thrive Questionnaire Date Thrive assessed: 09/29/24 I am a: Patient What is your living situation today?: I have a steady place to live Within the past 12 months, did the food you bought not last and you didn't have the money to get more?: Never true Within the past 12 months, did you worry whether your food would run out before you got money to buy more?: Never true Do you have trouble paying for medicines?: No Do you have trouble getting transportation to medical appointments?: No Do you have trouble paying your heating and electricity bill?: No Do you have trouble taking care of your child, family member or friend?: No Do you have trouble with day-to-day activities such as bathing, preparing meals, shopping, managing finances, etc.?: No Are you currently unemployed and looking for a job?: No Are you interested in more education?: No Please select the resources that you would like help with: None THRIVE Score: 0 AUDIT C Alcohol Use Questionnaire (AUDIT-C) 1. How often do you have a drink containing alcohol?: Never 3. How often do you have six or more drinks on one occasion?: Never Total Score: 0 TREVOR-7 AMB Questionnaire TREVOR-7 Date TREVOR - 7 assessed: 09/29/24 Feeling nervous, anxious, or on edge: 0 = Not at all Not being able to stop or control worryin = Not at all Worrying too much about different things: 0 = Not at all Trouble relaxin = Not at all Being so restless that it is hard to sit still: 0 = Not at all Becoming easily annoyed or irritable: 0 = Not at all Feeling afraid as if something awful might happen: 0 = Not at all Total TREVOR-7 score (0-4 normal; 5-9 mild; 10-14 moderate; 15-21 severe): 0 Source: Developed by Drs. Minor Calle, Phyllis Bush, Bill Dolan and colleagues, with an educational renee from [employer]. Physical exam (Primary Care) Vital Signs: Last Vital Signs Pulse 65 03/30/25 12:32 BP 124/66 03/30/25 12:32 Pulse Ox 97 03/30/25 12:32 Oxygen Delivery Method Room Air 03/30/25 12:32 Tobacco/Smoking Status: Tobacco use Status Tobacco use date assessed 03/30/25 03/30/25 12:32 Patient Tobacco Use Status Never used Tobacco 03/30/25 12:32 Tobacco use type Cigarette 03/30/25 12:32 e-Cigarette/Vaping Use Never Used 03/30/25 12:32 PHQ-9: PHQ-9 Score PHQ-9: Total score 0 03/30/25 12:32 Depression Screening Interpretation: Negative Thrive Assessment: Date of Thrive Assessment Date Thrive assessed 09/29/24 03/30/25 12:32 HENMT Head: Yes normal to inspection and Yes normocephalic Eyes General: appearance normal, both eyes and all related structures Neck Neck: Yes normal visual inspection Chest Chest palpation & inspection: normal inspection of the chest Resp Effort & Inspection: normal respiratory effort Cardio Other: Regular rate and rhythm GI Other: Soft nontender Inspection: Yes normal to inspection Back/Spine/Pelvis Other: Patient sits on wheelchair Skin General skin exam: no rashes or lesions noted Neuro Other: Moves arms but has finger contractures 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 5 lower extremity 1/5 +1 swelling Coding Level of Care Code Est Pt Level 4 (01836) Complex EM visit Add On G2211 Diagnoses Type 2 diabetes mellitus E11.9 Chronic flaccid quadriplegia G82.50 Wheelchair dependent Z99.3 Assessment & Plan Assessment & Plan (1) Type 2 diabetes mellitus: Code(s): E11.9 - Type 2 diabetes mellitus without complications Category: Medical (2) Chronic flaccid quadriplegia: Code(s): G82.50 - Quadriplegia, unspecified Category: Medical (3) Wheelchair dependent: Code(s): Z99.3 - Dependence on wheelchair Category: Medical Plan History of Present Illness The patient is a 59-year-old male presenting with the management of chronic conditions including diabetes mellitus and chronic flaccid quadriplegia. 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 He is wheelchair-dependent and experiences finger contractures, limiting his ability to perform daily activities. The patient also has diabetes mellitus, which he manages through diet, although he does not regularly monitor his blood glucose levels. He reports dizziness, particularly on follow-up days, which may be related to his diabetes management. The patient had a stage 4 pressure ulcer on his left shoulder, which has healed after treatment with Silvadene and rehabilitation at [facility]. He continues to use Silvadene as a precautionary measure to prevent further skin breakdown. The patient has an indwelling urinary catheter, which he changes every month to five weeks. He reports that his urine is not consistently clear, which may indicate a need for further evaluation. Health Maintenance - Blood work including hemoglobin A1c and cholesterol screening was discussed. - Referral to an eye doctor for vision assessment was considered. Social History - The patient is wheelchair-dependent due to chronic flaccid quadriplegia. - He manages his diabetes through dietary measures but does not regularly monitor blood glucose levels. - The patient has a [place] girlfriend who has influenced his dietary habits. Review of Systems - Neurological: Reports dizziness, particularly on follow-up days. - Musculoskeletal: Reports finger contractures. - Genitourinary: Reports urine not consistently clear. Physical Exam General: Cooperative, healthy appearing, comfortable, no acute distress and well developed. Patient sits on a wheelchair. Orientation: Patient oriented x3 Limitations: Chronic flaccid quadriplegia, wheelchair dependent Head: Normal to inspection Ears: Hearing grossly normal bilaterally Nose: Normal external nose present Face and sinus: Normal facial exam Eyes: Appearance normal, both eyes and all related structures Neck: Normal visual inspection and Yes full ROM Respiratory: Normal respiratory effort and able to speak in complete sentences. Clear to auscultation bilaterally Cardiovascular: Regular rate and rhythm. Normal S1 and S2 GI: Normal to inspection. Soft to palpation and nontender Skin: No rashes or lesions noted Neuro: Patient oriented x3. 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 Extremities: Upper extremity strength is 5/5. Lower extremity strength is 1/5. +1 swelling noted. Results Plan Patient was informed and verbally consented to the use of an ambient scribe for clinic note documentation during this visit. 1. Chronic Flaccid Quadriplegia The patient continues to manage chronic flaccid quadriplegia, which is a result of a cervical fracture sustained in 1986. He is wheelchair-dependent and experiences finger contractures, which limit his daily activities. 2. Diabetes Mellitus The patient manages diabetes mellitus primarily through dietary measures but does not regularly monitor his blood glucose levels. Blood work including hemoglobin A1c is planned to assess current control. 3. Stage 4 Pressure Ulcer The patient had a stage 4 pressure ulcer on his left shoulder, which has healed following treatment with Silvadene and rehabilitation at [facility]. He continues to use Silvadene as a precautionary measure to prevent further skin breakdown. 4. Indwelling Urinary Catheter The patient has an indwelling urinary catheter, which he changes every month to five weeks. He reports that his urine is not consistently clear, indicating a need for further evaluation. Discussion Notes During the visit, we discussed the management of the patient's chronic conditions, including diabetes mellitus and chronic flexed quadriplegia. We reviewed the importance of regular blood glucose monitoring and planned for blood work to include hemoglobin A1c and cholesterol screening. The patient was advised to continue using Silvadene for skin protection and to monitor the clarity of urine due to the indwelling catheter. Patient Instructions - Continue using Silvadene as directed to prevent skin breakdown. - Monitor blood glucose levels regularly and follow dietary recommendations for diabetes management. - Schedule and complete blood work including hemoglobin A1c and cholesterol screening. - Observe urine clarity and report any changes to your healthcare provider. - Follow up in three months for reassessment of chronic conditions. Orders: Orders AMB Hemoglobin A1c Today E11.9 - Type 2 diabetes mellitus without complications Complete Blood Count Auto Diff Today E11.9 - Type 2 diabetes mellitus without complications Comprehensive Met. Panel Today E11.9 - Type 2 diabetes mellitus without complications Free T4 (Free Thyroxine) Today E11.9 - Type 2 diabetes mellitus without complications Thyroid Stimulating Hormone Today E11.9 - Type 2 diabetes mellitus without complications Ferritin Today E11.9 - Type 2 diabetes mellitus without complications Hemoglobin A1c Today E11.9 - Type 2 diabetes mellitus without complications Uric Acid Today E11.9 - Type 2 diabetes mellitus without complications Lipid Panel Today E11.9 - Type 2 diabetes mellitus without complications, E78.00 - Pure hypercholesterolemia, unspecified Prostate Specific Antigen Scr Today E11.9 - Type 2 diabetes mellitus without complications Vitamin B12 and Folate Today E11.9 - Type 2 diabetes mellitus without complications Reticulocyte Count Today E11.9 - Type 2 diabetes mellitus without complications IRON PROFILE Today E11.9 - Type 2 diabetes mellitus without complications UA CC w/rflx Micro + Cult Today E11.9 - Type 2 diabetes mellitus without complications, R30.0 - Dysuria Referrals Ophthalmology Referral E11.9 - Type 2 diabetes mellitus without complications Medications: Refilled ciprofloxacin HCl (Cipro) 250 mg PO BID 20 tabs 3RF 10 days diazepam 5 mg PO Q6H PRN 90 tabs 1RF spasms silver sulfadiazine 1% apply a 1.5 mm thickness 1 appl topical BID 400 grams 3RF 30 days
[2025-03-30 12:32] VITALS: BP 124/66; PULSE 65; O2SAT 97
--- OUTSIDE RECORDS SUMMARY | 2025-03-30 13:16 | XMS_ITS | Clinical Summary ---
Author Organization [facility] Address [address] [place] [address] Care Team Providers Care Medical Operations Supervisor Name Role Phone Unavailable Primary Care Provider Unavailabl e Medications No known medications Active Problems Problem Noted Date Diagnosed Date Pressure injury of left ischium, unstageable (HC Code) 10/24/2023 Social History Tobacco Use Types Packs/Day Years [...] 76 10/24/2023 3:16 PM EDT Temperature 36.9 C (98.5 F) 10/24/2023 3:16 PM EDT Respiratory Rate 18 10/24/2023 3:16 PM EDT Oxygen Saturation 96% 10/24/2023 3:16 PM EDT Inhaled Oxygen Concentration - - Weight - - Height - - Body Mass Index - - Plan of Treatment Health Maintenance Due Date Last Done Comments HIV screening 1976 Hepatitis C screening 1981 Tetanus adult (Td q 10,TDAP once) 1983 Lipid disorder screening 2003 Colon cancer screening, Colonoscopy 2008 Diabetes screening 2008 Pneumococcal Vaccine (50+ ye ars) (1 of 1 - PCV) 2013 Shingles vaccine (Shingrix) (1 of 2 - Shingrix (RZV) 2 Dose Standard Series) 2013 RSV Immunization (1 - Risk 6 0-74 years 1-dose series) 2023 Covid-19 vaccine series ( season) 2024 Influenza vaccine 04/05/2025 Meningococcal B Vaccine Aged Out No l onger eligible based on patient's age to complete this topic Meningococcal Vaccine Aged Out No lizbeth shalom eligible based on patient's age to complete this topic Insurance WORKERS [employer] GENERIC WORK[employer]
--- OUTSIDE RECORDS SUMMARY | 2025-03-30 13:16 | XMS_ITS | Clinical Summary ---
Author Organization [facility] Address [address] [place] [address] Care Team Providers Care Last Cleaner Name Role Phone Xavier Ochoa Primary Care Provider [phone] Allergies Active Allergy Reactions Criticality Noted Date [...] (2 - 2023-2 5 season) 2024 11/11/2020 Alcohol/Substance Use Screening 08/05/2024 Depression Screening and Follow-Up 08/05/2024 Social Drivers of Health Danielle ual Screening 08/05/2024 Influenza Vaccine (#1) 2025 06/19/2017 RSV Vaccine (60+ years old a nd patients) (1 - 1-dose 75+ series) 2038 Hepatitis B Vaccines Aged Out No long er eligible based on patient's age to complete this topic Insurance [employer] COMP[employer] Care Teams Last Cleaner Relationship Specialty Start Date End Date Xavier Ochoa [address] [place] [address] [place] [id number] PCP - General Internal Medicine 08/09/23
--- OUTSIDE RECORDS SUMMARY | 2025-03-30 13:17 | XMS_ITS | Clinical Summary ---
Author Organization [facility] Address [address] [address] Phone Care Team Providers Care Clinic Lpn Name Role Phone Xavier Ochoa MD Primary Care Provider [phone] Allergies Active Allergy Reactions Criticality Noted Date Comments Sulfa (Sulfonamide Antibiotics) Other (See Comments) 10/05/2021 Medications werbm-piom-lk-c ollagen (DONNA) 7-7-1.5 gram PwPk Take 1 packet (27.5 g total) by mouth 2 (two) times a day. 2 Active magnesium oxide (MAG-OX) 400 mg (241.3 mg elemental) tablet Take 1 tablet (400 mg total) by mouth 2 (two) times a day. 2 Active vitamin with Ca-Iron-FA ( PLUS) 27 mg iron- 1 mg Tab tablet Take 1 tablet by mouth daily. 2 Active insulin glargine (LANTUS) 100 unit/mL injection vial Inject 28 Units under the skin nightly at bedtime. 2 Active insulin lispro (ADMELOG, HUMALOG) 100 unit/mL injection vial Inject 0-12 Units under the skin 4 (four) times a day with meals and nightly. GIVE EVEN IF PATIENT IS NPO OR HAS TUBE FEEDS HELD Sliding scale insulin - Moderate dose Blood glucose (mg/dL): Insulin dose Glucose 70-150: 0 unit. Glucose 151-200: 2 units. Glucose 201-250: 4 units. Glucose 251-300: 6 units. Glucose 301-350: 8 units. Glucose 351-400: 10 units. Glucose >400: 12 units and call RC. For blood glucose < 70 mg/dL call RC AND if patient: 1. Able to take PO, give 15 g of carbohydrate (4 oz fruit juice, regular soda, 8 oz of skim milk, or 3 to 4 glucose tablets) 2. Unable to take PO and PIV PRESENT, administer D50W per prn medication order OR 3. Unable to take PO and NO PIV, call RC/RF MICROWAVE ENGINEER to obtain order for glucagon Check blood glucose in 15 minutes and repeat if < 80 mg/dL and call RC 2 Active Active Problems Problem Noted Date Diagnosed Date Anemia 10/16/2021 Assessment & Plan (10/18/2021 8:56 AM EDT): hemoglobin 6.7 on the morning of 10/18 -Anemia likely caused by bleeding with dressing changes, blood draws as well as kidney disease -We will follow CBC and transfuse if hemoglobin drops below 7 -iron studies, low, TIBC also low -Patient declines blood transfusion on 10/18, will give IV iron x1, recheck CBC on the morning of 10/19 and patient is aware he may require transfusion at that time Pressure injury, stage 4, with infection 022 Assessment & Plan (10/18/2021 8:57 AM EDT): Patient followed by Dr. Freeman -Completing course of Zosyn should finalize course on 10/16 -Plan wound VAC change on 10/19 plan is discharge to [facility] thereafter Assessment & Plan (10/15/2021 10:39 AM EDT): General surgery continues to follow. Wound changes will be continued. Given the patient's bleeding with wound changes, his prophylaxis dosing of heparin will be held. I would argue that the patient is at his functional baseline and therefore he probably does not even need DVT prophylaxis, but this will be reassessed on a daily basis. Appreciate Dr. Freeman's involvement and continuing to follow. No dressing change today. Continue with IV antibiotics for another day, and then discontinue. We will continue to hold DVT prophylaxis until Dr. Freeman does a another dressing change tomorrow. Type 2 diabetes mellitus, [facility] long-term current use of insulin 10/12/2021 Assessment & Plan (10/16/2021 9:26 AM EDT): Continue basal bolus insulin -Follow wibht-ag-qvog glucose, goal below 180 Assessment & Plan (10/15/2021 10:45 AM EDT): This is a new diagnosis his hospitalization. His hyperglycemic state he is clearly compounded by his acute illness, but with a hemoglobin A1c greater than 12, this is been going on for a while. Continue to adjust his long-acting basal insulin today, and will go back up to about 28 units. We will also increase prandial insulin from yesterday given the trend of his glucose. This will need ongoing titration going forward. He will need outpatient follow-up from his primary care or transformer tester to ensure glycemic control. No indication to start any oral diabetic medications at this time but could potentially consider as an outpatient. C4 spinal cord injury 10/12/2021 Assessment & Plan (10/15/2021 10:45 AM EDT): This is chronic, and there is no need for any acute interventions at this time. I do believe it would be appropriate for physical therapy to work with the patient and therefore consultation will be placed. Given the fact that the patient has had significant oozing from his decubitus ulcer as well as him being at his baseline functional status, will discontinue heparin DVT prophylaxis. Acute renal failure with tubular necrosis 2021 Assessment & Plan (10/18/2021 8:56 AM EDT): Creatinine stable at 1.8 -Appreciate renal recommendations -Follow BMP Assessment & Plan (10/15/2021 10:42 AM EDT): Patient's acute kidney injury is likely multifactorial in the setting of low blood pressure, IV contrast, IV ketorolac and vancomycin. Vancomycin and NSAIDs have been discontinued. We will continue with a Aguilar catheter for close urine output monitoring. Urine output has been increasing likely related to post ATN diuresis. Will match with IV fluids to prevent further dehydration as the patient's BUN is slowly climbing. We will place a nephrology consultation for tomorrow morning, as there is no urgency to see today. Continue to trend daily labs. Continue with Lokelma given the mildly elevated potassium. Urinary retention 10/06/2021 Assessment & Plan (10/15/2021 11:25 AM EDT): Aguilar catheter in place. Patient has a chronic indwelling Aguilar catheter and therefore will need to continue. Is also helpful for close monitoring of urine output in the setting of acute renal failure. Assessment & Plan (10/16/2021 9:26 AM EDT): Aguilar catheter in place and draining Resolved Problems Problem Noted Date Diagnosed Date Resolved Date Hyperglycemia 10/07/2021 10/14/2021 Diarrhea 10/05/2021 10/12/2021 Assessment & Plan (10/16/2021 9:25 AM EDT): Immunizations Immunization Administration Dates Next Due Influenza Quadrivalent Prese rvative Free IM 10/19/2021(Deferred: Patient Refused) Social History Tobacco Use Types Packs/Day Years Used Date Smoking Tobacco: Never Smokeless Tobacco: Never Education Answer Date Recorded Are you interested in more education? Not on rabia e 12/01/2022 Are you concerned about learning? Not on file 12/01/2022 No 12/01/2022 No 12/01/2022 Digital Access Answer Date Recorded No 01/01/2023 No 01/01/2023 Reliable internet access at home? Not on file 01/01/2023 Device with a working camera? Not on file Sex and Gender Information Value Date Recorded Sex Assigned at Not on file Legal Sex Male 8:23 PM EST Gender Identity Not on file Sexual Orientation Not on file Last Filed Vital Signs Vital Sign Reading Time Taken Comments Blood Pressure 123/75 10/19/2021 3:26 PM EDT Pulse 78 10/19/2021 3:26 PM EDT Temperature 35.7 C (96.3 F) 10/19/2021 3:26 PM EDT Respiratory Rate 18 10/19/2021 3:26 PM EDT Oxygen Saturation 93% 10/19/2021 3:26 PM EDT Inhaled Oxygen Concentration - - Weight 129.4 kg (285 lb 4.8 oz) 10/19/2021 7:00 AM EDT Height 180.3 cm (5' 11 ) 10/05/2021 11: 11 PM EST Body Mass Index 39.79 10/05/2021 11:11 PM EST Plan of Treatment Health Maintenance Due Date Last Done Comments Adult Td,Tdap Booster 1963 BLOOD PRESSURE 1963 DEPRESSION SCREENING 1975 HEPATITIS C SCREENING 1981 HIV ONE-TIME SCREENING (18-6 5 YEARS) 1981 LIPID PANEL 1981 PNEUMOCOCCAL VACCINES (50+ y ears) (1 of 2 - PCV) 1982 COLOGUARD 2008 COLONOSCOPY 2008 COLORECTAL CANCER SCREENING 2008 FIT TEST 2008 FOBT 2008 SIGMOIDOSCOPY 2008 VIRTUAL COLONOSCOPY 2008 ZOSTER VACCINES (1 of 2) 2013 DIABETIC EYE EXAM 10/12/2021 URINE MICROALBUMIN/CREATININ E RATIO 10/12/2021 HEMOGLOBIN A1C 01/07/2022 10/07/2021 RSV VACCINE (1 - Risk 60-74 years 1-dose series) 2023 COVID-19 VACCINE (2 - 2023-2 5 season) 2024 11/11/2020 SMOKING STATUS SCREENING (On ce After 26 Yrs) Completed 10/06/2021 HEPATITIS A VACCINES Aged Out No long er eligible based on patient's age to complete this topic HIB VACCINES Aged Out No longer eligi ble based on patient's age to complete this topic MENINGOCOCCAL VACCINES (ACWY) Aged Out No longer eligible based on patient's age to complete this topic MENINGOCOCCAL VACCINES (B) Aged Out N o longer eligible based on patient's age to complete this topic Medical Devices Not on file Procedures Procedure Name Priority Date/Time Associated Diagnosis Comments HEMOGLOBIN A1C Routine 10/07/2021 5:50 AM EST from Last 3 Months or Most Recently Relevant to Health Maintenance Results * (ABNORMAL) Hemoglobin A1c (10/07/2021 5:50 AM EST) HEMOGLOBIN A1C 12.0(H) 4.3 - 5.8 % [facility] 10/07/2021 5:50 AM EST 10/07/2021 3:29 PM EST us Ralph Foster MD LAB BLOOD ORDERABLES Final Resu lt [facility] [address] [place] [address] from Last 3 Months or Most Recently Relevant to Health Maintenance Insurance WORK[employer] COMPENS[employer] WORKERS COMPENSATION [address] [address] Advance Directives For more information, please contact: [phone] (9AM - 5PM [facility], Saturday-Saturday) * Full Code (Latest Code Status on File) Date Activated Date Inactivated Comments 10/05/2021 11:32 PM Question Answer Comments Code Status Confirmed With: Patient Care Teams Clinic Lpn Relationship Specialty Start Date End Date Xavier Ochoa MD [address] [place] [address] Dr Greene, [place] [address] PCP - General Internal Medicine 10/05/21 Additional Source Comments The information contained in this document represents components of the legal health record. It is not the complete legal health record.[facility]
--- OUTSIDE RECORDS SUMMARY | 2025-03-30 13:17 | XMS_ITS | Encounter Summary ---
Author Organization [facility] Address [address] [place] [address] Phone Care Team Providers Care Industrial Roof Plumber Name Role Phone Xavier Ochoa MD Primary Care Provider [phone] Encounter Details Date Type Department Care Team (Late st Contact Info) Description 10/06/2021 Procedure Pass [facility], Ct Scan - [address] [address] Social History Tobacco Use Types Packs/Day Years Used Date Smoking Tobacco: Never Smokeless Tobacco: Never Sex and Gender Information Value Date Recorded Sex Assigned at Not on file Legal Sex Male 8:23 PM EST Gender Identity Not on file Sexual Orientation Not on file documented as of this encounter Plan of Treatment Not on file documented as of this encounter Visit Diagnoses Not on filedocumented in this encounter Additional Health Concerns Infection Onset Date Last Indicated Resolved Time CoV-Risk Comment:2 neg covids 10/05/2021 10/05/2021 10/06/2021 1:48 PM EST MRSA 10/08/2021 10/08/2021 10/08/2023 1:21 AM EST documented as of this encounter Care Teams Industrial Roof Plumber Relationship Specialty Start Date End Date Xavier Ochoa MD [address] [place] [address] [place] [address] PCP - General Internal Medicine 10/05/21 documented as of this encounter Additional Source Comments The information contained in this document represents components of the legal health record. It is not the complete legal health record.[facility]
--- OUTSIDE RECORDS SUMMARY | 2025-03-30 13:17 | XMS_ITS ---
Author Name [facility] Organization Unknown Encounters Encounter Type Encounter Reason Primary Diagnosis Location Date Ambulatory paper requisitio n for blood bank [facility] 01/07/2022 Observation Quadriplegia, unspecified [facility] 12/20/2021 Care Team Organization Name Specialty Phone Email Start Date End Da te [facility] NURIS SAUCEDA Primary Care 01/09/2022 [facility] NURIS SAUCEDA Primary Care 12/20/2021 12/21/19
--- OUTSIDE RECORDS SUMMARY | 2025-03-30 13:17 | XMS_ITS | Encounter Summary ---
Author Organization [facility] Address [address] [facility] [address] [place] [address] Phone Care Team Providers Care Sports Statistician Name Role Phone Xavire Ochoa MD Primary Care Provider [phone] Encounter Details Date Type Department Care Team (Late st Contact Info) Description 10/07/2021 Procedure Pass [place] Admitting Dept - Virtual Department [address] [place] [address] Social History Tobacco Use Types Packs/Day Years [...] Infection Onset Date Last Indicated Resolved Time MRSA 10/08/2021 10/08/2021 10/08/2023 1:21 AM EST documented as of this encounter Care Teams Sports Statistician Relationship Specialty Start Date End Date Xavier Ochoa MD [address] [place] [address] [place] [address] PCP - General Internal Medicine 10/05/21 documented as of this encounter Additional Source Comments The information contained in this document represents components of the legal health record. It is not the complete legal health record.[facility]
--- OUTSIDE RECORDS SUMMARY | 2025-03-30 13:17 | XMS_ITS | Clinical Summary ---
Author Organization [facility] Address [address] [place] [address] Care Team Providers Care Dowel Maker Name Role Phone Unavailable Primary Care Provider Unavailabl e Social History Tobacco Use Types Packs/Day Years Used Date Smoking Tobacco: Never Assessed Sex and Gender Information Value Date Recorded Sex Assigned at Not on file Legal Sex Male 8:59 AM EDT Gender Identity Not on file Sexual Orientation Not on file Plan of Treatment Health Maintenance Due Date Last Done Comments Pneumococcal Vaccine: 50+ Ye ars (1 of 2 - PCV) 1982 Colorectal Cancer Screening: Annual FOBT 2012 Colorectal Cancer Screening: Colonoscopy 2012 Colorectal Cancer Screening: Sigmoidoscopy 2012 Diabetes: Hemoglobin A1C 10/20/2021 Diabetes: Ophthalmology Exam 10/20/2021 Diabetes: Pedal Pulse Checked 10/20/2021 Diabetes: Sensory Foot Exam 10/20/2021 Diabetes: Visual Foot Exam 10/20/2021 Influenza Vaccine (#1) 2025 Hepatitis B Vaccine Aged Out No longe r eligible based on patient's age to complete this topic Insurance Generic Workers Comp
--- OUTSIDE RECORDS SUMMARY | 2025-03-30 13:17 | XMS_ITS | Clinical Summary ---
Author Organization [facility] Address [address] [place] [address] Care Team Providers Care Computer Systems Security Analyst Name Role Phone Xavier Ochoa MD Primary Care Provider [phone] Allergies Active Allergy Reactions Criticality Noted Date Comments Sulfa Antibiotics Unknown/Patient and Family Unable to Define Medium 12/20/2021 Medications Amino Acids (AMINO ACID PROTEIN PO) Take [...] other medications; take with food Active Multiple Vitamins-Mineral s (multivitamin with minerals) tablet Take 1 tablet [...] day. On every shift to buttocks/ischial wound Active acetaminophen (TYLENOL) 325 MG tablet Take 650 mg by mouth every 4 (four) hours as needed for mild pain. Active aluminum-magnesi um hydroxide-simeth icone (MYLANTA) suspension Take 30 mL by mouth [...] at Not on file Legal Sex Male 1:01 PM EDT Gender Identity Not on file Sexual Orientation Not on file Last Filed Vital Signs Vital Sign Reading Time Taken Comments Blood Pressure 124/101 12/20/2021 8:00 PM EDT Pulse 93 12/20/2021 8:00 PM EDT Temperature 36.1 C (96.9 F) 12/20/2021 6:10 PM EDT Respiratory Rate 14 12/20/2021 8:00 PM EDT Oxygen Saturation 97% 12/20/2021 8:00 PM EDT Inhaled Oxygen Concentration - - Weight - - Height - - Body Mass Index - - Plan of Treatment Health Maintenance Due Date Last Done Comments Hepatitis C Virus Screening 1963 Foot Exam 1973 Lipid Panel 1973 Ophthalmology Exam 1973 HIV Screening 1976 Microalbumin/Creatinine Rati o Urine 1981 DTaP/Tdap/Td Vaccines (1 - Tdap) 1982 Pneumococcal Vaccines 50+ (1 of 2 - PCV) 1982 Colonoscopy 2008 Zoster (Shingles) Vaccine (1 of 2) 2013 Hemoglobin A1C 04/09/2022 10/07/2021 Creatinine with GFR 12/20/2022 12/20/2021 RSV Vaccine 60 years and old er and Patients (1 - Risk 60-74 years 1-dose series) 2023 COVID-19 Vaccine (1 - 2023-2 5 season) 2024 Influenza Vaccine 03/05/2025 Hepatitis B Vaccines Aged Out No long [...] - 99 mg/dL 12/20/2021 3:09 PM EDT [facility] Blood Urea Nitrogen (BUN) 34(H) 8 - 21 mg/dL 12/20/2021 3:09 PM EDT [facility] Creatinine 0.3(L) 0.5 - 1.3 mg/dL 12/20/2021 3:09 PM EDT [facility] eGFR >60 >59 12/20/2021 3:09 PM EDT [facility] Comment:MDRD in mL/min/1.73 sq meters. Sodium 136 136 - 145 mmol/L 12/20/2021 3:09 PM EDT [facility] Potassium 3.7 3.4 - 5.3 mmol/L 12/20/2021 3:09 PM EDT [facility] Chloride 98 98 - 107 mmol/L 12/20/2021 3:09 PM EDT [facility] CO2 26 22 - 33 mmol/L 12/20/2021 3:09 PM T [facility] Calcium 10.4 8.7 - 10.5 mg/dL 12/20/2021 3:09 PM EDT [facility] Alkaline Phosphatase 98 45 - 128 U/L 12/20/2021 3:09 PM EDT [facility] Aspartate Aminotrans (AST) 14 10 - 55 U/L 12/20/2021 3:09 PM T [facility] Alanine Aminotrans (ALT) 12 10 - 55 U/L 12/20/2021 3:09 PM T [facility] Bilirubin, Total <0.2(L) 0.2 - 1.0 mg/dL 12/20/2021 3:09 PM T [facility] Protein, Total 7.7 6.3 - 8.3 g/dL 12/20/2021 3:09 PM T [facility] Albumin 3.6 3.5 - 5.0 g/dL 12/20/2021 3:09 PM [facility] BUN/Creatinine Ratio 113(H) 10.0 - 25.0 Ratio 12/20/2021 3:09 PM [facility] Globulin 4.1(H) 1.5 - 3.9 g/dL 12/20/2021 3:09 PM [facility] Albumin/Globulin Ratio 0.9(L) 1.0 - 3.0 Ratio 12/20/2021 3:09 PM T [facility] Anion Gap 12 7 - 17 12/20/2021 3:09 PM [facility] Blood specimen (specimen) (Plasma/Serum) 12/20/2021 2:02 PM EDT 12/20/2021 2:45 PM EDT us Ida Mcgill MD LAB BLOOD ORDERABLES Fin al Result HOSPITAL LAB [facility] [address] [place] [address] from Last 3 Months or Most Recently Relevant to Health Maintenance Insurance [facility] WORKER'S COMP Advance Directives * Full Code (Latest Code Status on File) Date Activated Date Inactivated Comments 12/20/2021 2:27 PM Care Teams Computer Systems Security Analyst Relationship Specialty Start Date End Date Xavier Ochoa MD [address] [place] [address] PCP - General 12/20/21
--- OUTSIDE RECORDS SUMMARY | 2025-03-30 13:17 | XMS_ITS | Encounter Summary ---
Author Organization [facility] Address [address] [place] [address] Phone Care Team Providers Care Heddler Name Role Phone Xavier Ochoa MD Primary Care Provider [phone] Encounter Details Date Type Department Care Team (Late st Contact Info) Description 10/06/2021 Procedure Pass [facility], Ct Scan - [address] [address] Social History Tobacco Use Types Packs/Day Years [...] documented as of this encounter Care Teams Heddler Relationship Specialty Start Date End Date Xavier Ochoa MD [address] [place] [address] [place] [address] PCP - General Internal Medicine 10/05/21 documented as of this encounter Additional Source Comments The information contained in this document represents components of the legal health record. It is not the complete legal health record.[facility]
== END 2025-03-30 13:18 | disposition home or self-care (01) ==
LOC: HO.HMCH 12:30
PROVIDERS: PCP Internal Medicine; Visit Provider Internal Medicine
DX: E11.9 Type 2 diabetes mellitus without complications (principal); G82.50 Quadriplegia, unspecified; Z99.3 Dependence on wheelchair

== ENCOUNTER → 2025-03-30 12:30 | Outpatient (BNVA) | payer OTHER, SELFPAY | PROVIDERS: PCP Internal Medicine; Visit Provider Internal Medicine | DX: E11.9 Type 2 diabetes mellitus without complications (principal); G82.50 Quadriplegia, unspecified; L89.894 Pressure ulcer of other site, stage 4; R30.0 Dysuria; Z96.0 Presence of urogenital implants; Z99.3 Dependence on wheelchair | CPT/HCPCS: 96127; 99212 ==

== ENCOUNTER 2025-07-20 13:22 | Outpatient (AMB) | payer OTHER, SELFPAY ==
--- NOTE | 2025-07-20 13:36 | MHC.PC.OV ---
Vital Signs 07/20/25 13:40 BMI Reason not done Patient refused/unable BP 136/66 Blood Pressure Location Rt radial Position Sitting Pulse 80 Pulse Source Pulse Oximeter Temp 97.1 F Temp Source Temporal Artery Scan Pulse Oximetry (%) 97 Oxygen Delivery Method Room Air Intake Visit Reasons: DM Allergies Sulfa (Sulfonamide Antibiotics) (SULFA (SULFONAMIDE ANTIBIOTICS)) Allergy (Unknown, Verified 07/20/25 13:37) DIFFICULTY BREATHING Medication List - Last Reconciled 07/20/25 by Fariba Canales MD ascorbate calcium (vitamin C) 500 mg PO DAILY [Bard 30cc ceja cath kit As directed] catheterization tray (Ceja Catheter Tray) As directed ciprofloxacin HCl (Cipro) 250 mg PO BID 10 days diazepam 5 mg PO Q6H PRN [Ceja catheter 3 way indwelling coude tip 22 FR As directed] silver sulfadiazine 1% 1 appl topical BID 30 days Tobacco use date assessed: 07/20/25 Dental Screening Dental Screen Date: 07/20/25 Did you have a dental visit in the last 12 months?: Yes Did you have a dental problem in the last 6 months where you did not have access to dental care?: No Was dental information given to patient?: Patient has dentist HPI HPI Comments History of Present Illness Details History of Present Illness The patient is a 60-year-old male presenting for follow-up on his chronic conditions. 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 He has a history of diabetes mellitus and is mindful of his sugar intake. The patient has a history of pressure ulcers, including a healed stage 4 ulcer on his left shoulder, and another on his lower back/buttocks area, which he describes as currently red and first-stage, which he attributes to his mattress. He manages this with a pad on his mattress. He has an indwelling urinary catheter that is changed monthly. For recurrent UTIs, he takes Cipro or Levaquin as needed, noting that one works when the other does not. He is on Diazepam, which he takes as needed. The patient reports a sulfa allergy and uses Silvadene daily. His last visit was in March 2025. The patient has not had a recent eye exam, although a referral was previously made. He has received his flu shot. Health Maintenance The patient was advised to get blood work done soon. The importance of vaccinations was discussed, including the tetanus shot (due every 10 years), pneumonia shot, and shingles shot. Continued attention to skin integrity was advised to prevent worsening of pressure ulcers. Social History - Functional Status: Patient has chronic flaccid quadriplegia and is wheelchair-bound. - Nutritional Intake: Patient reports being mindful of sugar intake, and recent meals include lean hamburger and mushrooms. 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 Results - No lab results were discussed as the patient has not had recent blood work. [facility] Medical History (Updated 07/20/25 @ 13:56 by Fariba Canales MD) Osteoporosis Chronic incomplete quadriplegia Cervical vertebral fracture Family History Father Heart disease Social History Housing: House Patient Tobacco Use Status: Never used Tobacco Tobacco use type: Cigarette e-Cigarette/Vaping Use: Never Used service: No Cognitive needs: Yes Hearing needs: No Vision needs: No Questionnaire PHQ-9 Over the last 2 weeks, how often have you been bothered by any of the following problems? 1. Little interest or pleasure in doing things: not at all 2. Feeling down, depressed, or hopeless: not at all 3. Trouble falling or staying asleep, or sleeping too much: not at all 4. Feeling tired or having little energy: not at all 5. Poor appetite or overeating: not at all 6. Feeling bad about yourself - or that you are a failure or have let yourself or your family down: not at all 7. Trouble concentrating on things, such as reading the newspaper or watching television: not at all 8. Moving or speaking so slowly that other people could have noticed. Or the opposite - being so fidgety or restless that you have been moving around a lot more than usual: not at all 9. Thoughts that you would be better off or of hurting yourself in some way: not at all Total score: 0 Depression Screening Interpretation: Negative Depression Screening Done: Yes Source: Developed by Drs. Minor Calle, Bill Pastrana and colleagues, with an educational renee from [employer]. Thrive Questionnaire Date Thrive assessed: 07/20/25 I am a: Patient What is your living situation today?: I have a steady place to live Within the past 12 months, did the food you bought not last and you didn't have the money to get more?: Never true Within the past 12 months, did you worry whether your food would run out before you got money to buy more?: Never true Do you have trouble paying for medicines?: No Do you have trouble getting transportation to medical appointments?: No Do you have trouble paying your heating and electricity bill?: No Do you have trouble taking care of your child, family member or friend?: No Do you have trouble with day-to-day activities such as bathing, preparing meals, shopping, managing finances, etc.?: I choose not to answer this question Are you currently unemployed and looking for a job?: No Are you interested in more education?: I choose not to answer this question Please select the resources that you would like help with: None Currently or been in a relationship where the following occur: No concerns reported THRIVE Score: 0 AUDIT C Alcohol Use Questionnaire (AUDIT-C) 1. How often do you have a drink containing alcohol?: Never 3. How often do you have six or more drinks on one occasion?: Never Total Score: 0 TREVOR-7 AMB Questionnaire TREVOR-7 Date TREVOR - 7 assessed: 07/20/25 Feeling nervous, anxious, or on edge: 0 = Not at all Not being able to stop or control worryin = Not at all Worrying too much about different things: 0 = Not at all Trouble relaxin = Not at all Being so restless that it is hard to sit still: 0 = Not at all Becoming easily annoyed or irritable: 0 = Not at all Feeling afraid as if something awful might happen: 0 = Not at all Total TREVOR-7 score (0-4 normal; 5-9 mild; 10-14 moderate; 15-21 severe): 0 Source: Developed by Drs. Minor Calle, Bill Pastrana and colleagues, with an educational renee from [employer]. Review of Systems Narrative Review of Systems - Neurological: Denies movement in his lower extremities. - Integumentary: Reports a red, stage one pressure sore on his lower back above the buttocks. - Constitutional: Denies feeling pale. Physical exam (Primary Care) Vital Signs: Last Vital Signs Temp 97.1 F 07/20/25 13:40 Pulse 80 07/20/25 13:40 BP 136/66 07/20/25 13:40 Pulse Ox 97 07/20/25 13:40 Oxygen Delivery Method Room Air 07/20/25 13:40 Tobacco/Smoking Status: Tobacco use Status Tobacco use date assessed 07/20/25 07/20/25 13:38 Patient Tobacco Use Status Never used Tobacco 07/20/25 13:38 Tobacco use type Cigarette 07/20/25 13:38 e-Cigarette/Vaping Use Never Used 07/20/25 13:38 PHQ-9: PHQ-9 Score PHQ-9: Total score 0 07/20/25 13:56 Depression Screening Interpretation: Negative Thrive Assessment: Date of Thrive Assessment Date Thrive assessed 07/20/25 07/20/25 13:38 Currently or been in a relationship where the following occur: No concerns reported Narrative Physical Exam - Vitals: Blood pressure 136/66 mmHg. - General: Appears well, not pale. - Skin: Erythema of cheeks noted. - Neurological: No motor function in lower extremities or left side. - Musculoskeletal: Limited range of motion in shoulder due to prior fracture. Const General: alert; No acute distress Eyes Conjunctivae: conjunctivae normal Resp Auscultation: clear to auscultation bilaterally Cardio Rate: regular rate Rhythm: regular rhythm GI Inspection: Yes normal to inspection Extrem Other: Lower extremity no movement at all 1/5, upper extremity left arm can stretch/elevate arm but the right side up to shoulder length only with contractures of the right hand Coding Level of Care Code Est Pt Level 4 (76379) Add On Problem Visit Only Diagnoses Chronic flaccid quadriplegia G82.[address] Z97.8 Type 2 diabetes mellitus without complication, without long-term current use of insulin E11.9 Diabetes mellitus complication status: without complication Diabetes mellitus chcf insulin use: without parts counterman use Assessment & Plan Assessment & Plan (1) Chronic flaccid quadriplegia: Code(s): G82.50 - Quadriplegia, unspecified Category: Medical Plan: Supportive management (2) Ceja catheter in place: Code(s): Z97.8 - Presence of other specified devices Category: Medical Plan: Continuing to monitor (3) Type 2 diabetes mellitus: Code(s): E11.9 - Type 2 diabetes mellitus without complications Category: Medical Qualifiers: Diabetes mellitus complication status: without complication Diabetes mellitus parts counterman insulin use: without chcf use Qualified Code(s): E11.9 - Type 2 diabetes mellitus without complications Plan: Decrease the amount of carbohydrate intake, pasta, bread, rice and potatoes are all sugar and that is aside from all the sweet stuff, remember that fruits are good but they are Sweet also. Plan Plan Patient was informed and verbally consented to the use of an ambient scribe for clinic note documentation during this visit. 1. Diabetes Mellitus The patient is encouraged to proceed with blood work to monitor his condition, including cholesterol and kidney function. The importance of a diabetic eye exam was reinforced, as high blood sugar can damage the eyes. 2. Hypertension The patient's blood pressure was 136/66 mmHg, which is considered stage 1 hypertension. No immediate treatment is planned, but monitoring will continue. 3. Recurrent Utis And Medication Management A prescription for Cipro will be refilled. It was explained that alternating between two antibiotics in the same class (Levaquin and Cipro) is not advisable due to the risk of developing resistance. Alternative antibiotic classes, such as Augmentin or Macrobid, were discussed for future use to cycle medications and prevent resistance. 4. Anxiety And Muscle Spasms A refill for Diazepam was prescribed, to be taken as needed. Discussion Notes I discussed the patient's blood pressure reading of 136/66 mmHg, explaining that this is considered stage 1 hypertension but does not require treatment at this time. We reviewed his current antibiotic use for UTIs (Cipro and Levaquin) and I advised against using two drugs from the same family due to the risk of bacterial resistance, suggesting a plan to cycle with different antibiotics like Augmentin or Macrobid in the future. I emphasized the need for regular monitoring through blood work for his kidneys and cholesterol, and the importance of a diabetic eye exam to prevent complications from diabetes. I recommended he consider getting his tetanus, pneumonia, and shingles vaccinations. We discussed his current red pressure area, and I cautioned him to be careful to prevent it from worsening. I refilled his prescriptions for Cipro and Diazepam. Patient Instructions - Take your Diazepam only when you need it. - Be sure to get your blood work done as we discussed to check your kidneys and cholesterol. - Follow up on getting a diabetic eye exam. High blood sugar can be harmful to your eyes. - Be careful with your skin to prevent the red area on your back from becoming an open sore. - We refilled your Cipro and Diazepam. - Consider getting your tetanus, pneumonia, and shingles shots to protect your health. Medications: Refilled ciprofloxacin HCl (Cipro) 250 mg PO BID 20 tabs 3RF 10 days diazepam 5 mg PO Q6H PRN 90 tabs 1RF spasms
[2025-07-20 13:40] VITALS: BP 136/66; PULSE 80; TEMP 36.2; O2SAT 97
--- OUTSIDE RECORDS SUMMARY | 2025-07-20 17:26 | XMS_ITS | Clinical Summary ---
Author Organization [facility] Address [address] [place] [address] Care Team Providers Care Supervisor [place] Name Role Phone Xavier Ochoa Primary Care Provider [phone] Allergies Active Allergy Reactions Criticality Noted Date [...] 2013 Zoster Vaccines (1 of 2) 2013 Alcohol/Substance Use Screening 08/05/2024 Depression Screening and Follow-Up 08/05/2024 Social Drivers of Health Danielle ual Screening 08/05/2024 Influenza Vaccine (#1) 2025 06/19/2017 COVID-19 Vaccine (2 - 2024-2 6 season) 2025 11/11/2020 RSV Vaccine (60+ years old a nd patients) (1 - 1-dose 75+ series) 2038 Hepatitis B Vaccines Aged Out No long er eligible based on patient's age to complete this topic Insurance [employer] Care Teams Supervisor [place] Relationship Specialty Start Date End Date Xavier Ochoa [address] [place] [address] [place] [address] PCP - General Internal Medicine 08/09/23
--- OUTSIDE RECORDS SUMMARY | 2025-07-20 17:26 | XMS_ITS | Encounter Summary ---
Author Organization [facility] Address [address] [place] [id number] Phone Care Team Providers Care Microfiche Camera Operator Name Role Phone Xavier Ochoa MD Primary Care Provider [phone] Encounter Details Date Type Department Care Team (Late st Contact Info) Description 10/06/2021 Procedure Pass [facility] [place], [place] Scan - [address] [address] Social History Tobacco Use Types Packs/Day Years [...] documented as of this encounter Care Teams Microfiche Camera Operator Relationship Specialty Start Date End Date Xavier Ochoa MD [address] [place] [address] [place] [address] PCP - General Internal Medicine 10/05/21 documented as of this encounter Additional Source Comments The information contained in this document represents components of the legal health record. It is not the complete legal health record.[facility]
--- OUTSIDE RECORDS SUMMARY | 2025-07-20 17:26 | XMS_ITS | Clinical Summary ---
Author Organization [facility] Address [address] [place] [address] Care Team Providers Care Science Writer Name Role Phone Unavailable Primary Care Provider [...] ars) (1 of 1 - PCV) 2013 RSV Immunization (1 - Risk 5 0-74 years 1-dose series) 2013 Shingles vaccine (Shingrix) (1 of 2 - Shingrix (RZV) 2 Dose Standard Series) 2013 Influenza vaccine 03/05/2025 Covid-19 vaccine series ( season) 2025 Meningococcal B Vaccine Aged Out No l onger eligible based on patient's age to complete this topic Meningococcal Vaccine Aged Out No lizbeth shalom eligible based on patient's age to complete this topic Insurance [employer]
--- OUTSIDE RECORDS SUMMARY | 2025-07-20 17:26 | XMS_ITS | Data Portability ---
Author Organization [facility], Main Office Address [address] [address] [address] [place] [address] Care Team Providers Care Solar Engineer Name Role Phone WALLY MICHELLE ([place]) OTHER Assessment Encounter Date Assessment Date Assessment LastModified by Organization Details LastModified Time 12/06/2021 12/06/202111/27: na 136, k 4.2, bun 38, creat 0.40, wbc 9.82 11/17 wbc 23.61, hgb 10.6, hct 31.5 11/20: na 136, k 4.6, bun 32, creat 0.40 glord Not available 12/06/2021 07:46:20 12/07/2021 12/07/202111/27: na 136, k 4.2, bun 38, creat 0.40, wbc 9.82 11/17 wbc 23.61, hgb 10.6, hct 31.5 11/20: na 136, k 4.6, bun 32, creat 0.40 11/08: wbc 8.39, hgb 10.4, hct 31.1, na 135, k 4.1, bun 37, creat 0.40 11/02: na 139, k 4.0, bun 38, creat 0.50, mag 1.7 10/30: wbc 7.96, hgb 8.4, hct 26.3 , bun 42, creat 0.60 [email or web address] Not available 12/07/2021 18:47:35 12/14/2021 12/14/202110/19 wbc 9.49, hgb 6.5, hct 20.1, bun 57, creat 1.4 [email or web address] Not available 12/14/2021 14:24:22 Plan of Treatment Reminders Order Date Submit Date Provider Last Modified By Organization Details Last Modified Time Details Appointments None record ed. Lab None record ed. Referral None record ed. Procedures None record ed. Surgeries None record ed. Imaging None record ed. Medication Orders None record ed. Patient TargetsNo targets recorded. Patient InstructionsNo instructions recorded. Reason for Referral None Reported. Problems Name Problem SNOMED Code Status Onset Date Resolution Date Notes Provider Name and Address Organization Details Recorded Time Pressure injury of buttock 446116410 Active 2021 Enid Rebekah null, [facility] 2 12:20:42 Retention of urine 236088505 Active 2021 Enid Arlington null, [facility] 2 12:21:17 Acute tubular necrosis 15577727 Active 2021 Enid Rebekah null, [facility] 2 12:21:19 Paraplegia 43712400 Active 2021 Enid Rebekah null, [facility] 2 12:21:24 Type 2 diabetes mellitus without complicatio n 074869166 Active 2021 Enid Rebekah null, [facility] [employer] [facility] 2 12:21:25 Insomnia 358707052 Active 2021 ALEKSEY ORTEGA [address] [place] [address] [address], [place], [address], [facility] [employer] [facility] 2 11:43:05 Quadriplegi a with quadripares is 4649947085700 0 Active 2021 Ida Ratliff MD [address] [facility] [address], [place], [address], [facility] [employer] [facility] 2 23:29:46 Problem Notes None recorded. Medical Equipment None Reported. Allergies Allergen ID Allergen Name Allergen Category Reaction Reaction Severity Criticality Documentation Date Start Date Code Code System Note Provider Name and Address Organization Details Recorded Time 31678 Substance with sulfonami de structure and antibacte rial mechanism of action (substanc e) medicatio n Not available Not available Not available 10/20/2021 84933 8003 SNOMED Enid Arlington null, [facility] 2 12:07:54 Medications Not known to be on any medication Vitals Date Recorded Respiratory rate Heart rate Systolic And Diastolic Provider Name and Address Organization Details Last Updated DateTime 12/06/2021 20 /min 76 /min 118/68 mm[Hg] ALEKSEY ORTEGA [address] [facility] [address], [place], [address], [place] 12/06/2021 07:48:14 Date Recorded Body weight Heart rate Respiratory rate Body temperature Oxygen saturation Body mass index (BMI) Body height Systolic And Diastolic Provider Name and Address Organization Details Last Updated DateTime 2 962482. 72 g 77 /min 20 /min 98 [degF] 98 % 35.3 kg/m2 177.8 cm 132/66 mm[Hg] Ida Ratliff MD [address] [facility] [address], [place], [address], [facility] 2 18:42:14 Date Recorded Body height Systolic And Diastolic Provider Name and Address Organization Details Last Updated DateTime 12/08/2021 177.8 cm 148/80 mm[Hg] Enid Welch [facility] 12/08/2021 11:24:15 Date Recorded Body height Systolic And Diastolic Provider Name and Address Organization Details Last Updated DateTime 12/13/2021 177.8 cm 136/80 mm[Hg] Enid Welch [facility] [employer] [facility] 12/13/2021 09:14:33 Date Recorded Body height Oxygen saturation Heart rate Respiratory rate Body temperature Systolic And Diastolic Provider Name and Address Organization Details Last Updated DateTime 2 177.8 cm 94 % 76 /min 18 /min 98.3 [degF] 126/88 mm[Hg] DARA Novak [address] [facility] [address], [place], [address], [place] 2 14:23:15 Social History Question Answer Notes LastModified by Organizat ion Details LastModified Time Tobacco Smoking Status Never Smoker Enid nicole [facility] [employer] 10/20/2021 12:08:29 Do You Have An Advance Directive? Yes Information not available 10/20/2021 What Is Your Code Status? Full Code Information not available 10/20/2021 What Was The Date Of Your Most Recent Tobacco Screening? 10/20/2021 Information not available 10/20/2021 Sex: Unknown Functional Status Question Answer Note LastModified by Organization D etails LastModified Time Do you or have you ever used any other forms of tobacco or nicotine? No Information not available 10/20/2021 Mental Status None recorded. Family History Nothing Reported Notes:non-contributory Medical History No medical history recorded. Immunizations Vaccine Type Date Status Note Provider Nam e and Address Organization Details Recorded Time SARS-COV-2 (COVID-19) vaccine, UNSPECIFIED 11/11/2020 completed Elana nicole [place] - [facility] 11/28/2023 11:38:33 Past Encounters Encounter ID Performer Location Encounter Start Date Encounter Closed Date Diagnosis/Indication Diagnosis SNOMED-CT Code Diagnosis ICD10 Code Diagnosis IMO Codes Diagnosis Note [id number] DARA Adams [address] [place] [address] 10/20/2021 12:02:54 11/07/2021 10:54:34 Pressure injury of buttock 184369240 L89.309 Antibiotic course completed in hospitalWo und VAC in placeDr Pete to follow-adrian l be in to change wound VAC 10/21Juven and vitamin to promote wound healingMon itor for recurrent infection Type 2 mary betes mellitus without complication 387749731 E11.9 New diagnosisL antus 28 units QHSLispro QIDMonitor blood sugar Acute tubu lar necrosis 49066821 N17.0 Repeat and monitor renal functionNe phrology consult prn Retention of urine 88358 4002 R33.[address] Quadripleg ia with quadriparesis 9700082466 9100 G82.52 Longstandi ng C4 quadWheelc hair dependent at baselineVa lium 5 mg PRN spasmsBisa codyl supp Q3 daysPT OT eval and treat [id number] ALEKSEY LORD WALLY MICHELLE [address] [place] [address] 10/23/2021 09:58:39 11/07/2021 10:55:12 Pressure injury of buttock 561679888 L89.309 Wound VAC in Domingo Freeman was in this weekend to changeJuve n and vitamin to promote wound healingMon itor for recurrent infection Type 2 mary betes mellitus without complication 790544277 E11.9 New diagnosisc ontinue lantus 28 units QHS- educated patientLis pro QID- barely used, explained to patient importance of accepting when neededMoni tor blood sugar Acute tubu lar necrosis 65372110 N17.0 Repeat and monitor renal functionNe phrology consult prn Retention of urine 35435 4002 R33.[address] Quadripleg ia with quadriparesis 8331301867 9100 G82.52 Longstandi ng C4 quadWheelc hair dependent at baselineVa lium 5 mg PRN spasmsBisa codyl supp Q3 daysPT OT eval and treat Insomnia 994833237 G47.0 9 add melatonin 10 mg qhswill f/u tomorrow if patient does not sleep well he would like to try trazodone Pneumonia 783976814 J18. 9 doxycyclin e 100 mg BID x 10 daysprobio tic dailymonit or resp status, vitals, c diff recurrance [id number] MD WALLY Mcdowell [address] [place] [address] 10/25/2021 10:28:40 11/07/2021 10:55:52 Pressure injury of buttock 408302610 L89.320 see HPIs/p debridemen t and drainagemo nitor site with wound vac in placeupdat e surgery with concerns with f/u in place Type 2 mary betes mellitus without complication 245513567 E11.9 this is a new dx for patientreq uired insulin drip in hospitalno w onlantus 28 units qdlispro SSmonitor need to adjust Acute tubu lar necrosis 75032688 N17.0 ARF in hospital felt secondary to Vanco utilizatio nimproved with IVFmonitor renal functionav oid nephrotoxi c meds as ablenephro f/u in place Retention of urine 25187 4002 R33.8 see abovechron ic urinary retentionm onitor with ceja in place Quadripleg ia with quadriparesis 7064862490 9100 G82.52 C4 spinal injury at baselinequ adriplegia wheelchair dependentm onitor for muscle spasmthera py to eval and treat [id number] ALEKSEYDEYANIRA MICHELLE [address] [place] [address] 10/26/2021 09:24:59 11/07/2021 10:56:32 Pressure injury of buttock 592648493 L89.320 see HPIs/p debridemen t and drainagewo und vac change today, will assess with wound RN Type 2 mary betes mellitus without complication 254077288 E11.9 lantus 28 units qd, sugars range 150-220lis pro SS- needs at timesmonit or need to adjust Acute tubu lar necrosis 16294603 N17.0 ARF in hospital felt secondary to Vanco utilizatio nimproved with IVFmonitor renal function, repeat labs saturday Elevated blood-pressure reading without diagnosis of hypertension 285083770 R03.0 give supp nowmonitor bps q shift x 7 daysconsid er addition of lasix if needed but with caution due to kidney issues [id number] ALEKSEY MICHELLE [address] [place] [address] 10/30/2021 09:44:42 11/07/2021 10:57:21 Elevated blood-pressure reading without diagnosis of hypertension 494236970 R03.0 continue to monitorsee m to be in range at this time around 130/70 Pressure i njury of buttock 465820351 L89.320 continue wound vacwound bed looks very healthyDrKorina Freeman to follow Type 2 mary betes mellitus without complication 344901682 E11.9 lantus 28 units qd, seem in better control 81 today, mostly all under 200lispro SS- needs at timesmonit or need to adjust [id number] ALEKSEY MICHELLE [address] [place] [address] 11/02/2021 11:17:21 11/07/2021 10:59:50 Elevated blood-pressure reading without diagnosis of hypertension 020624694 R03.0 resolvedbp s now in range Pressure i njury of buttock 650540236 L89.320 continue wound vacwound bed looks very healthyDrKorina Freeman to follow Type 2 mary betes mellitus without complication 125454216 E11.9 decrease lantus to 25 units qd, 58 this AMlispro SS- needs at timesmonit or need to adjust, goal is to taper off injectable and start POmonitor closely for hypoglycem ia Acute tubu lar necrosis 81056085 N17.0 bun 38, creat 0.50dehydr ated, push fluids [id number] [address] [place] [address] 11/08/2021 07:55:03 11/10/2021 15:25:03 Pressure injury of buttock 976792514 L89.320 continue wound vacwound bed looks very healthyDr. Freeman to follow Type 2 mary betes mellitus without complication 847040095 E11.9 continue lantus 25 units qdlispro SS- needs at timesmonit or need to adjust, goal is to taper off injectable and start POmonitor closely for hypoglycem ia Acute tubu lar necrosis 93725723 N17.0 see HPImonitor labs, repeat on saturdaycont inue PO fluids [id number] [address]ANIR[address] [place] [address] 11/09/2021 09:04:25 11/13/2021 16:09:04 Grabiel hematuria 728053024 R31.0 add fosfomycin 3 gm x 1 nowadd flush bladder with 60 cc NS every 2 hours x 24 hours or until bleeding resolvesif bleeding continues beyond that will need ED referral [id number] ALEKSEY LORD WALLY [address] [place] [address] 11/10/2021 08:53:01 11/13/2021 16:12:52 Grabiel hematuria 298015061 R31.0 resolved Pressure i njury of buttock 522674380 L89.320 continue wound vacwound bed looks very healthy and getting smaller per nursing when they changed it yesterdayD mecca Freeman to follow - will be here saturday Type 2 mary betes mellitus without complication 889829606 E11.9 continue lantus 25 units qdlispro SS- needs at timesmonit or need to increasemo nitor closely for hypoglycem ia [id number] ALEKSEY LORD WALLY [address] [place] [address] 11/14/2021 09:21:44 11/16/2021 11:09:09 Grabiel hematuria 825127096 R31.0 resolved Pressure i njury of buttock 276370710 L89.320 continue wound vacwound bed looks very healthy and getting smaller per nursing when they changed it yesterdayD mecca Freeman to follow - will be here saturday Type 2 mary betes mellitus without complication 979150499 E11.9 increase lantus back to 28 units QHSmonitor accuchecks closely for any hypoglycem ialispro SS- needs at timespatie nt needs tight glucose control while wound is healingdef er starting PO meds to outpt PCP when he discharges Acute tubu lar necrosis 17807227 N17.0 Labs were not done at [facility] tomorrow 11/15 [id number] [place] [address] 11/16/2021 11:39:13 11/20/2021 15:35:31 Type 2 diabetes mellitus without complication 337872549 E11.9 continue lantus 28 units QHSmonitor accuchecks closely for any hypoglycem ialispro SS- needs at timespatie nt needs tight glucose control while wound is healingdef er starting PO meds to outpt PCP when he discharges Pressure i njury of buttock 888641941 L89.320 continue wound vacwound bed looks very healthy and getting smaller per nursingDr. Freeman to follow - will be here saturday Acute tubu lar necrosis 19068859 N17.0 resolving Elevated blood-pressure reading without diagnosis of hypertension 386092571 R03.0 continue to monitor, will add bps three times a weekseem to be in range at this time around 147.89 Retention of urine 19281 4002 R33.8 chronic urinary retentionm onitor with ceja in place Quadripleg ia with quadriparesis 5776308943 9100 G82.52 C4 spinal injury at baselinequ adriplegia wheelchair dependent [id number] Enid Welch, DARA MICHELLE [address] [place] [address] 11/17/2021 14:09:34 11/20/2021 16:07:06 Pressure injury of buttock 953782944 L89.309 Started on Keflex 500 mg QID todayWill add Doxycyclin e 100 mg BID for MRSA coveragePr obioticWou nd VAC removedDr Pete updated-wi ll be in to see patient tomorrowMo nitor closely and if decompensa ting transfer to hospital [id number] ALEKSEY WALLYMauricio MICHELLE [address] [place] [address] 11/20/2021 12:57:19 11/23/2021 15:43:12 Pressure injury of buttock 183986660 L89.309 continue Keflex 500 mg QIDdoxycyc line 100 mg BID for MRSA coveragePr obiotic dailyWound VAC in place changed three times a weekDr Pete mendes dd wound culture tomorrow to wound vac tunneled area [id number] DARA Adams [address] [place] [address] 11/24/2021 13:21:08 11/28/2021 17:54:49 Pressure injury of buttock 242055534 L89.309 Wound culture positive for ProteusHas completed course Keflex and Doxycyclin eCont daily wound careWound VAC in placeDbrendan Freeman followingR epeat CBC 11/27 to ensure leukocytos is improved [id number] ALEKSEY MICHELLE [address] [place] [address] 11/27/2021 09:56:57 11/28/2021 18:08:45 Pressure injury of buttock 043203571 L89.309 Wound culture positive for Proteus and enterococc usHas completed course Keflex and Doxycyclin eCont daily wound careWound VAC in placeDr Freeman followingl abs appear improved Type 2 mary betes mellitus without complication 553090223 E11.9 change time of lantus to QAM and decrease to 24 units per patient requestmon itor accuchecks closely for any hypoglycem ialispro SS- still needspatie nt needs tight glucose control while wound is healingpat ient upset about taking insulin, educated him on why he needs it [id number] ALEKSEY MICHELLE [address] [place] [address] 11/30/2021 10:38:41 12/04/2021 14:37:25 Pressure injury of buttock 138203638 L89.309 Wound culture with few Proteus, recently treatedCon t daily wound careWound VAC in placeDr Pete followingl abs appear improved, repeat in one week Type 2 mary betes mellitus without complication 424677381 E11.9 continue lantus 24 unitsDC lispro SS due to errorschan ge accuchecks to BID, he been controlled patient needs tight glucose control while wound is healing Constipation 03201018 K5 9.00 add colace/sen na combo BIDmonitor for improvemen t in bowels Elevated blood-pressure reading without diagnosis of hypertension 675359864 R03.0 continue to monitor, patient feels related to bowel issuesrefu sing bp meds [id number] ALEKSEY LORD WALLY MICHELLE [address] [place] [address] 12/06/2021 07:45:38 12/08/2021 11:21:12 Pressure injury of buttock 164557093 L89.309 Cont daily wound careWound VAC in Kassier Pete followinga dd zinc to excoriated area, move bridging to give area a rest Type 2 mary betes mellitus without complication 162093207 E11.9 176, 146, 156continu e lantus 24 units in AMaccuchec ks BIDpatient needs tight glucose control while wound is healingrep eat A1C with next labs Constipation 14020600 K5 9.00 much improvedco ntinue senna/cola ce BID Elevated blood-pressure reading without diagnosis of hypertension 029046073 R03.0 much [id number] 03/6898/581 18/64conti nue to monitor [id number] MD WALLY Leblanc [address] [place] [address] 12/07/2021 18:41:10 12/14/2021 12:59:27 Pressure injury of buttock 482759630 L89.320 Continue wound care as ordered with wound vac.Contin ue Ming for protein supplement to assist healing.Co ntinue APAP prn for pain. (not much feeling in that area).F/U with Dr. Freeman, surgeon, as planned. Type 2 mary betes mellitus without complication 809079181 E11.9 In good controlCon tinue lantus 24 U qd.Continu e monitoring accuchecks BID and try to maintain tight control to assist wound healing.Re check HgA1C next week. Constipation 21409749 K5 9.09 Improved.C ontinue bowel meds as ordered.Mo nitor bowel function. Elevated blood-pressure reading without diagnosis of hypertension 466096507 R03.0 Back to normal.Mon itor Acute tubu lar necrosis 76151482 N17.0 Back to normal..Co ntinue to avoid nephrotoxi c meds as able.Monit or labs.Renal consult prn. Retention of urine 34601 4002 R33.8 Continue chronic ceja.F/U with uro as planned. Quadripleg ia with quadriparesis 8737907730 9100 G82.52 Quadripleg ia, wheelchair dependent at baseline.C ontinue PT/OT as needed. [id number] [place] [address] 12/08/2021 11:18:30 12/11/2021 16:22:22 Contact dermatitis 96296415 L25.9 Triamcinol one 0.1% ointment to rash L thigh BID x 10 daysOutlin e area of erythema and monitor Qshift for worseningM onitor and re-eval next week [id number] [place] [address] 12/13/2021 09:12:28 12/15/2021 18:49:00 Type 2 diabetes mellitus without complication 485849456 E11.9 Blood sugars acceptable despite refusal of LantusWill d/c LantusCont to monitor blood sugars BIDIf blood sugars elevated would consider starting oral med as may be preferrabl e to patient Contact dermatitis 30178 004 L25.9 ImprovingC ont Triamcinol one [id number] [place] [address] 12/14/2021 14:22:41 12/15/2021 19:06:22 Pressure injury of buttock 732067548 L89.309 ok to dc to another facilityAn tibiotic course completed in hospitalWo und VAC in place - staff will remove and pack wound and receiving facility will resume wound vacJuven and vitamin to promote wound healingMon itor for recurrent infection Acute tubu lar necrosis 38788847 N17.0 monitor renal functionNe phrology consult prn Quadripleg ia with quadriparesis 5781829423 9100 G82.52 Longstandi ng C4 quadWheelc hair dependent at baselineVa lium 5 mg PRN spasmsBisa codyl supp Q3 days Type 2 mary betes mellitus without complication 886288933 E11.9 Blood sugars acceptable despite refusal of LantusLant us was discontinu ed on 12/13/21Con t to monitor blood sugars BIDIf blood sugars elevated would consider starting oral med as may be preferrabl e to patient Health Concerns Section Related Observation LastModified by Organization Detai ls LastModified Time None Recorded Concern Status LastModified by Organization Details LastModified Time None Recorded Advance Directives Directive Y: Payers Insurance Date Sequence Insurance Name Policy Number Policy Toney Covered Member ID Tnoey Member ID Guarantor Name 04/18/2022 [facility] [id number] [facility] 03/07/2022 QAMAR [id number] [facility] Notes Date Note Type Note Provider Name and Address Organization Details Recorded Time 12/06/2021 text/html This is a 56 yo male seen today for acute rounding visit. Patient with chronic ulcer of L buttock, followed by Dr Freeman with wound VAC in place. Patient was seen last week for elevated blood pressures he felt were due to constipation. He was started on colace/senna BID and his blood pressures have had great improvement. He also had his lantus changed to AM dosing and decrease of his accuchecks to BID. Sugars all appear under 200, will continue this dosing but monitor closely as he needs tight control over his sugars with a healing wound.Patient would like to transfer to a wound care specialty center as he feels they would provide more in depth wound care. At this time I see no contraindications for that, he is medically stable. OK to transfer when bed and transportation are available, will send our notes along. ALEKSEY ORTEGA [address] [place] [address], [address], [place], [address], [facility] - [facility] 12/07/2021 13:25:39 12/07/2021 text/html This is a 56 yo man who I am seeing today for a routine MD 60 day rounding visit. He has been here since 10/19 for tx of a chronic left buttock ulcer, due to quadriplegia. He tells me today that Dr. Freeman, surgeon, says wound is healing in and tunneled area is much improved. He continues with wound vac.He had an issue last week with some high BPs, this resolved after he had a good BM, after tx with senna and colace.His PMH includes C4 quadriplegia, AODM, chronic buttock ulcer, insomnia, constipation, urinary retention, and anemia. Ida Ratliff MD [address] [place] [address], [address], [place], [address], [place] 12/13/2021 23:30:03 12/08/2021 text/html 56 yo male seen for acute rounding. Patient noted with new rash to L upper thigh yesterday. Adjacent to wound VAC site and possible tegaderm was previously covering this area. Enid nicole [place] 12/08/2021 11:26:54 12/13/2021 text/html 56 yo male seen for acute rounding. Patient with chronic ulcer of L buttock, followed by Dr Freeman with wound VAC in place. Last week noted with erythema and pustules of L thigh. Castana to be contact dermatitis from adhesive used on wound VAC. Triamcinolone added with good effect. Patient also requesting to stop insulin-has been refusing Lantus past 2 days. Enid nicole [place] 12/13/2021 11:00:47 12/14/2021 text/html pt seen today for discharge summary. pt has been here since 10/19 for tx of a chronic left buttock ulcer, due to quadriplegia. pt says that Dr. Freeman, surgeon, says wound is healing in and tunneled area is much improved. He continues with wound vac. is transferring to another facility today as pt wants to go to a facility that has more experience with quadriplegic pts. accepting facility does not want pt transferred with our wound vac. 56 yo male with hx C4 quadriplegia, wheelchair dependent, chronic pressure ulcer of L buttock/hip originally admit from hospital after presenting with profuse diarrhea. Patient had recently been on multiple courses of antibiotics due to infection of pressure ulcer. C diff negative. Imaging of wound revealed soft tissue gas throughout L upper thigh, gluteal and ischiorectal fossa regions as well as 9 cm abscess of L medial thigh. Taken to OR for debridement and I&D of abscess. Started on broad spectrum antibiotics and wound VAC placed. Also found to be persistently hyperglycemic with HbA1c 12%-patient did not have previous DM diagnosis. Required ICU admission for insulin infusion due to refractory hyperglycemia-transiti oned to Lantus/Lispro by discharge. Patient also with worsened renal function-treated with IV fluids and Vanco was dc'd. DARA Novak [address] [facility], [address], [place], [address], [facility] [facility] 12/14/2021 15:09:01
--- OUTSIDE RECORDS SUMMARY | 2025-07-20 17:26 | XMS_ITS | Encounter Summary ---
Author Organization [facility] Address [address] [facility] [address] [facility] [address] [place] [id number] Phone Care Team Providers Care Yoga Teacher Name Role Phone Xavier Ochoa MD Primary Care Provider [phone] Encounter Details Date Type Department Care Team (Late st Contact Info) Description 10/07/2021 Procedure Pass OR Admitting Dept - Virtual Department [address] [place] [address] Social History Tobacco Use Types Packs/Day Years [...] Indicated Resolved Time MRSA 10/08/2021 10/08/2021 10/08/2023 1:2 1 AM EST documented as of this encounter Care Teams Yoga Teacher Relationship Specialty Start Date End Date Xavier Ochoa MD [address] [place] [address] [place] [id number] PCP - General Internal Medicine 10/05/21 documented as of this encounter Additional Source Comments The information contained in this document represents components of the legal health record. It is not the complete legal health record.[facility]
--- OUTSIDE RECORDS SUMMARY | 2025-07-20 17:26 | XMS_ITS | Encounter Summary ---
Author Organization [facility] Address [address] [place] [address] Phone Care Team Providers Care Shrimp Boat Captain Name Role Phone Xavier Ochoa MD Primary Care Provider [phone] Encounter Details Date Type Department Care Team (Late st Contact Info) Description 10/06/2021 Procedure Pass [facility], Ct Scan - [address] [address] Social History Tobacco Use Types Packs/Day Years [...] documented as of this encounter Care Teams Shrimp Boat Captain Relationship Specialty Start Date End Date Xavier Ochoa MD [address] [place] [address] [place] [address] PCP - General Internal Medicine 10/05/21 documented as of this encounter Additional Source Comments The information contained in this document represents components of the legal health record. It is not the complete legal health record.[facility]
--- OUTSIDE RECORDS SUMMARY | 2025-07-20 17:26 | XMS_ITS | Clinical Summary ---
Author Organization [facility] Address [address] [place] [address] Care Team Providers Care Photovoltaic Power Systems Engineer Name Role Phone Xavier Ochoa MD Primary Care Provider [phone] Allergies Active Allergy Reactions Criticality Noted Date [...] of 2 - PCV) 1982 Colonoscopy 2008 RSV Vaccine 50 years and old er and Patients (1 - Risk 50-74 years 1-dose series) 2013 Zoster (Shingles) Vaccine (1 of 2) 2013 Hemoglobin A1C 04/09/2022 10/07/2021 Creatinine with GFR 12/20/2022 12/20/2021 Influenza Vaccine 03/05/2025 COVID-19 Vaccine (1 - 2024-2 6 season) 2025 Hepatitis B Vaccines Aged Out No long [...] - 99 mg/dL 12/20/2021 3:09 PM EDT [facility] Blood Urea Nitrogen (BUN) 34(H) 8 - 21 mg/dL 12/20/2021 3:09 PM EDT [facility] Creatinine 0.3(L) 0.5 - 1.3 mg/dL 12/20/2021 3:09 PM EDT [facility] eGFR >60 >59 12/20/2021 3:09 PM EDT [facility] Comment:MDRD in mL/min/1.73 sq meters. Sodium 136 136 - 145 mmol/L 12/20/2021 3:09 PM EDT [facility] Potassium 3.7 3.4 - 5.3 mmol/L 12/20/2021 3:09 PM EDT [facility] Chloride 98 98 - 107 mmol/L 12/20/2021 3:09 PM EDT [facility] CO2 26 22 - 33 mmol/L 12/20/2021 3:09 PM T [facility] Calcium 10.4 8.7 - 10.5 mg/dL 12/20/2021 3:09 PM EDT [facility] Alkaline Phosphatase 98 45 - 128 U/L 12/20/2021 3:09 PM EDT [facility] Aspartate Aminotrans (AST) 14 10 - 55 U/L 12/20/2021 3:09 PM EDT [facility] Alanine Aminotrans (ALT) 12 10 - 55 U/L 12/20/2021 3:09 PM T [facility] Bilirubin, Total <0.2(L) 0.2 - 1.0 mg/dL 12/20/2021 3:09 PM T [facility] Protein, Total 7.7 6.3 - 8.3 g/dL 12/20/2021 3:09 PM T [facility] Albumin 3.6 3.5 - 5.0 g/dL 12/20/2021 3:09 PM T [facility] BUN/Creatinine Ratio 113(H) 10.0 - 25.0 Ratio 12/20/2021 3:09 PM [facility] Globulin 4.1(H) 1.5 - 3.9 g/dL 12/20/2021 3:09 PM [facility] Albumin/Globulin Ratio 0.9(L) 1.0 - 3.0 Ratio 12/20/2021 3:09 PM T [facility] Anion Gap 12 7 - 17 12/20/2021 3:09 PM [facility] Blood specimen (specimen) (Plasma/Serum) 12/20/2021 2:02 PM EDT 12/20/2021 2:45 PM EDT us Ida Mcgill MD LAB BLOOD ORDERABLES Fin al Result HOSPITAL LAB [facility] [address] [place] [address] from Last 3 Months or Most Recently Relevant to Health Maintenance Insurance [facility] WORKER'S COMP Advance Directives * Full Code (Latest Code Status on File) Date Activated Date Inactivated Comments 12/20/2021 2:27 PM Care Teams Photovoltaic Power Systems Engineer Relationship Specialty Start Date End Date Xavier Ochoa MD [address] [place] [address] PCP - General 12/20/21
--- OUTSIDE RECORDS SUMMARY | 2025-07-20 17:26 | XMS_ITS | Clinical Summary ---
Author Organization [facility] Address [address] [address] Phone Care Team Providers Care Granite Worker Name Role Phone Xavier Ochoa MD Primary Care Provider [phone] Allergies Active Allergy Reactions Criticality Noted Date Comments Sulfa (Sulfonamide Antibiotics) Other (See Comments) 10/05/2021 Medications djkyl-aagi-jo-c ollagen (DONNA) 7-7-1.5 gram PwPk Take 1 [...] to take PO and NO PIV, call RC/CONFLICT RESOLUTION PROFESSIONAL to obtain order for glucagon Check blood [...] change on 10/19 plan is discharge to [facility] thereafter Assessment & Plan (10/15/2021 10:39 AM [...] dressing change tomorrow. Type 2 diabetes mellitus, [facility] long-term current use of insulin 10/12/2021 Assessment & Plan (10/16/2021 9:26 AM EDT): Continue basal bolus insulin -Follow apihi-zd-rrle glucose, goal below 180 Assessment & Plan [...] outpatient follow-up from his primary care or travel coordinator to ensure glycemic control. No indication to [...] Assessment & Plan (10/16/2021 9:26 AM EDT): Augilar catheter in place and draining Resolved Problems [...] FOBT 2008 SIGMOIDOSCOPY 2008 VIRTUAL COLONOSCOPY 2008 RSV VACCINE (1 - Risk 50-74 years 1-dose series) 2013 ZOSTER VACCINES (1 of 2) 2013 DIABETIC EYE EXAM 10/12/2021 URINE MICROALBUMIN/CREATININ E RATIO 10/12/2021 HEMOGLOBIN A1C 01/07/2022 10/07/2021 INFLUENZA VACCINE (#1) 2025 COVID-19 VACCINE (2 - 2024-2 6 season) 2025 11/11/2020 SMOKING STATUS SCREENING (On ce After [...] HEMOGLOBIN A1C 12.0(H) 4.3 - 5.8 % [facility] 10/07/2021 5:50 AM EST 10/07/2021 3:29 PM EST us Ralph Foster MD LAB BLOOD BKR ORDERABLES Final Result [facility] [address] [place] [address] from Last 3 Months or Most Recently Relevant to Health Maintenance Insurance WORKERS COMPENSATION WORKERS COMPENSATION Advance Directives For more information, please contact: [phone] (9AM - 5PM [facility], Saturday-Saturday) * Full Code (Latest Code Status on File) Date Activated Date Inactivated Comments 10/05/2021 11:32 PM Question Answer Comments Code Status Confirmed With: Patient Care Teams Granite Worker Relationship Specialty Start Date End Date Xavier Ochoa MD [address] [place] [address] Dr Cabezas [address] [place] [address], [place] [address] PCP - General Internal Medicine 10/05/21 Additional Source Comments The information contained in this document represents components of the legal health record. It is not the complete legal health record.[facility]
== END 2025-07-20 14:12 | disposition home or self-care (01) ==
LOC: HO.HMCH 13:23
PROVIDERS: PCP Internal Medicine; Visit Provider Internal Medicine
DX: G82.50 Quadriplegia, unspecified (principal); Z97.8 Presence of other specified devices; E11.9 Type 2 diabetes mellitus without complications

== ENCOUNTER → 2025-07-20 13:22 | Outpatient (BNVA) | payer OTHER, SELFPAY | PROVIDERS: PCP Internal Medicine; Visit Provider Internal Medicine | DX: E11.9 Type 2 diabetes mellitus without complications (principal); Z97.8 Presence of other specified devices | CPT/HCPCS: 96127; 99212 ==